=== PATIENT | male | born 1940 ===

== ENCOUNTER 2019-05-23 23:45 | Inpatient (IN) | payer MEDICARE ==
[~2019-05-23] VITALS: Ht 167.6 cm; Wt 69.4 kg
[2019-05-24] MEDS ORDERED: CEPH-264 PO (01:42)
[2019-05-24] MEDS ORDERED: DOXE10CA PO (01:42)
[2019-05-24] MEDS ORDERED: DICY10CA3 PO (01:42)
[2019-05-24] MEDS ORDERED: FINA5TAB4 PO (01:42)
[2019-05-24] MEDS ORDERED: SERT100T PO (01:42)
[2019-05-24] MEDS ORDERED: METO-239 PO (01:42)
[2019-05-24] MEDS ORDERED: TAMS0.4C97 PO (01:42)
[2019-05-24] MEDS ORDERED: OMEP20CA16 PO (01:42)
[2019-05-24] MEDS ORDERED: CLON0.5T4 PO (01:42)
[2019-05-24] MEDS ORDERED: MAG HYDROX/AL HYDROX/SIMETH 30 ML ORAL.SUSP PO PRN (02:15)
[2019-05-24] MEDS ORDERED: METHYL SALICYLATE/MENTHOL TOPICAL OINTMENT 57GM TUBE. TP PRN (02:15)
[2019-05-24] MEDS ORDERED: MAGNESIUM HYDROXIDE 2,400 MG/30 ML ORAL.SUSP. PO PRN (02:15)
[2019-05-24] MEDS ORDERED: DOXEPIN HCL 10 MG CAPSULE PO PRN (03:15)
[2019-05-24] MEDS: CEPHALEXIN 250 MG CAPSULE PO SCH ×2 (05:39→14:00)
--- NOTE | 2019-05-24 06:06 | EKG ---
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
[2019-05-24 06:45] VITALS: BP 154/81
[2019-05-24 07:06] LABS: BASO # 0.1 x10^3/uL (0.0-0.2); BASO % 1 % (0-3); EOS # 0.2 x10^3/uL (0.0-0.7); EOS % 4 % (0-3); HEMATOCRIT 44.1 % (39.0-53.0); HEMOGLOBIN 14.4 g/dL (13.0-17.5); LYMPH # 1.1 x10^3/uL (1.0-4.8); LYMPH % 18 % (24-48); MEAN CORPUSCULAR HEMOGLOBIN 27 pg (25-35); MEAN CORPUSCULAR HGB CONC 33 g/dL (31-37); MEAN CORPUSCULAR VOLUME 83 fL (79-100); MONO # 0.5 x10^3/uL (0.0-1.1); MONO % 8 % (0-9); NEUT # 4.5 x10^3uL (1.8-7.7); NEUT % 70 % (31-73); PLATELET COUNT 273 x10^3/uL (140-400); RED CELL DISTRIBUTION WIDTH 16.3 % (11.5-14.5); WHITE BLOOD COUNT 6.3 x10^3/uL (4.0-11.0)
[2019-05-24 07:14] LABS: ALBUMIN 3.8 g/dL (3.4-5.0); ALBUMIN/GLOBULIN RATIO 0.9 (1.0-1.7); CALCIUM 9.3 mg/dL (8.5-10.1); CREATININE 1.4 mg/dL (0.7-1.3); GFR 48.8; POTASSIUM 3.9 mmol/L (3.5-5.1); TOTAL BILIRUBIN 0.7 mg/dL (0.2-1.0); TOTAL PROTEIN 8.2 g/dL (6.4-8.2)
[2019-05-24] MEDS ORDERED: NON FORMULARY ITEM (Omeprazole 20 MG) PO SCH (07:30)
[2019-05-24] MEDS: DICYCLOMINE HCL 10 MG CAPSULE PO SCH ×5 (07:30→21:00)
[2019-05-24] MEDS: PANTOPRAZOLE 40 MG TABLET. PO SCH (07:58)
[2019-05-24] MEDS: TAMSULOSIN 0.4 MG CAP.ER.24H. PO SCH (07:59)
[2019-05-24] MEDS: METOPROLOL SUCC 24HR ER 25 MG TAB.ER.24H. PO SCH (07:59)
[2019-05-24] MEDS: SERTRALINE 100 MG TABLET. PO SCH (07:59)
[2019-05-24 16:07] LABS: THYROXINE 7.9 ug/dL (4.5-12.0)
[2019-05-24 16:18] VITALS: BP 153/64
[2019-05-24] MEDS: FINASTERIDE 5 MG TABLET PO SCH (21:00)
--- NOTE | 2019-05-24 21:06 | PDOC ---
Exam Note: Apolinar Note: Please also refer to the separate dictated note~for this date of service dictated separately. Discussed the patient with Nursing staff reviewed the chart.~Reviewed interim history and current functioning. Reviewed vital signs,~Labs/ Radiology~and current medications noted below. Continue current treatment with the changes noted in the dictated addendum note Assessment: Vital Signs/I&O: Vital Signs Date Time Temp Pulse Resp B/P (MAP) Pulse Ox O2 Delivery O2 Flow Rate FiO2 05/24/19 16:18 98.5 98 20 153/64 (93) 97 05/24/19 06:45 Room Air Labs: Laboratory Tests Test 05/24/19 06:38 White Blood Count 6.3 x10^3/uL (4.0-11.0) Red Blood Count 5.30 x10^6/uL (4.30-5.70) Hemoglobin 14.4 g/dL (13.0-17.5) Hematocrit 44.1 % (39.0-53.0) Mean Corpuscular Volume 83 fL (79-100) Mean Corpuscular Hemoglobin 27 pg (25-35) Mean Corpuscular Hemoglobin Concent 33 g/dL (31-37) Red Cell Distribution Width 16.3 % (11.5-14.5) H Platelet Count 273 x10^3/uL (140-400) Neutrophils (%) (Auto) 70 % (31-73) Lymphocytes (%) (Auto) 18 % (24-48) L Monocytes (%) (Auto) 8 % (0-9) Eosinophils (%) (Auto) 4 % (0-3) H Basophils (%) (Auto) 1 % (0-3) Neutrophils # (Auto) 4.5 x10^3uL (1.8-7.7) Lymphocytes # (Auto) 1.1 x10^3/uL (1.0-4.8) Monocytes # (Auto) 0.5 x10^3/uL (0.0-1.1) Eosinophils # (Auto) 0.2 x10^3/uL (0.0-0.7) Basophils # (Auto) 0.1 x10^3/uL (0.0-0.2) Sodium Level 141 mmol/L (136-145) Potassium Level 3.9 mmol/L (3.5-5.1) Chloride Level 101 mmol/L (98-107) Carbon Dioxide Level 24 mmol/L (21-32) Anion Gap 16 (6-14) H Blood Urea Nitrogen 16 mg/dL (8-26) Creatinine 1.4 mg/dL (0.7-1.3) H Estimated GFR (Cockcroft-Gault) 48.8 BUN/Creatinine Ratio 11 (6-20) Glucose Level 116 mg/dL (70-99) H Calcium Level 9.3 mg/dL (8.5-10.1) Magnesium Level 2.2 mg/dL (1.8-2.4) Total Bilirubin 0.7 mg/dL (0.2-1.0) Aspartate Amino Transferase (AST) 17 U/L (15-37) Alanine Aminotransferase (ALT) 13 U/L (16-63) L Alkaline Phosphatase 91 U/L (46-116) Total Protein 8.2 g/dL (6.4-8.2) Albumin 3.8 g/dL (3.4-5.0) Albumin/Globulin Ratio 0.9 (1.0-1.7) L Thyroxine (T4) 7.9 ug/dL (4.5-12.0) Total Triiodothyronine (TT3) 79 ng/dL (71-180) Current Medications: Meds: Current Medications Medications (Trade) Dose Ordered Sig/Mikel Route PRN Reason Start Time Stop Time Status Last Admin Dose Admin Dicyclomine HCl (Bentyl) 10 mg QIDACHS PO 05/24/19 07:30 05/24/19 11:30 Metoprolol Succinate (Toprol Xl) 25 mg DAILY PO 05/24/19 09:00 05/24/19 07:59 Sertraline HCl (Zoloft) 200 mg DAILY PO 05/24/19 09:00 05/24/19 07:59 Tamsulosin HCl (Flomax) 0.4 mg DAILY PO 05/24/19 09:00 05/24/19 07:59 Cephalexin HCl (Keflex) 500 mg Q8HRS PO 05/24/19 06:00 05/24/19 17:49 DC 05/24/19 05:39 Pantoprazole Sodium (Protonix) 40 mg DAILYAC PO 05/24/19 07:30 05/24/19 07:58 I have reviewed the current psychotropics carefully including drug interactions. Risk benefit ratio favors no change other than as noted in my dictated progress note. Diagnosis: Problems: (1) Anxiety disorder (2) Major depressive disorder, recurrent episode (3) Major neurocognitive disorder, due to vascular disease, with behavioral disturbance, mild (4) Mild cognitive disorder (5) Impulse control disorder OTIS SHEPHERD MD May 24, 2019 21:06
[2019-05-24] MEDS: clonazePAM 1 MG TABLET PO SCH (21:11)
[2019-05-24] MEDS: risperiDONE ORAL 1 MG/ML 30ml BOTTLE. SL SCH (21:13)
[2019-05-24 21:58] LABS: THYROID STIM HORMONE (TSH) 2.144 uIU/mL (0.358-3.740)
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
[2019-05-25 00:06] LABS: HEMOGLOBIN A1C 5.4 % (4.8-5.6)
[2019-05-25 06:25] VITALS: BP 150/74
[2019-05-25] MEDS: TAMSULOSIN 0.4 MG CAP.ER.24H. PO SCH (10:28)
[2019-05-25] MEDS: SERTRALINE 100 MG TABLET. PO SCH (10:29)
[2019-05-25] MEDS: DICYCLOMINE HCL 10 MG CAPSULE PO SCH ×4 (10:29→20:38)
[2019-05-25] MEDS: METOPROLOL SUCC 24HR ER 25 MG TAB.ER.24H. PO SCH (10:29)
[2019-05-25] MEDS: PANTOPRAZOLE 40 MG TABLET. PO SCH (10:29)
[2019-05-25] MEDS: cefTRIAXone IM 1 GM VIAL IM SCH (10:30)
[2019-05-25 16:02] VITALS: BP 120/82
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
[2019-05-25] MEDS: FINASTERIDE 5 MG TABLET PO SCH (20:38)
[2019-05-25] MEDS: clonazePAM 1 MG TABLET PO SCH (20:38)
[2019-05-25] MEDS: risperiDONE ORAL 1 MG/ML 30ml BOTTLE. SL SCH (20:40)
--- NOTE | 2019-05-25 21:05 | PDOC ---
Exam Note: Apolinar Note: Please also refer to the separate dictated note~for this date of service dictated separately.~Patient seen individually. Discussed the patient with Nursing staff reviewed the chart.~Reviewed interim history and current functioning. Reviewed vital signs,~Labs/ Radiology~and current medications noted below. Continue current treatment with the changes noted in the dictated addendum note Assessment: Vital Signs/I&O: Vital Signs Date Time Temp Pulse Resp B/P (MAP) Pulse Ox O2 Delivery O2 Flow Rate FiO2 05/25/19 16:02 97.4 76 20 120/82 (95) 96 05/24/19 06:45 Room Air I & O 05/24/19 05/24/19 05/25/19 15:00 23:00 07:00 Intake Total 960 ml 360 ml Balance 960 ml 360 ml Current Medications: Meds: Current Medications Medications (Trade) Dose Ordered Sig/Mikel Route PRN Reason Start Time Stop Time Status Last Admin Dose Admin Ceftriaxone Sodium (Rocephin Im) 1 gm DAILY IM 05/25/19 09:00 05/31/19 11:00 05/25/19 10:30 I have reviewed the current psychotropics carefully including drug interactions. Risk benefit ratio favors no change other than as noted in my dictated progress note. Diagnosis: Problems: (1) Dementia, vascular, with delusions (2) Dementia, vascular, with depression (3) Anxiety disorder (4) Major depressive disorder, recurrent episode (5) Major neurocognitive disorder, due to vascular disease, with behavioral disturbance, mild (6) Mild cognitive disorder (7) Impulse control disorder OTIS SHEPHERD MD May 25, 2019 21:05
[2019-05-26 05:44] VITALS: BP 119/82
[2019-05-26] MEDS: METOPROLOL SUCC 24HR ER 25 MG TAB.ER.24H. PO SCH (08:46)
[2019-05-26] MEDS: DICYCLOMINE HCL 10 MG CAPSULE PO SCH ×4 (08:46→20:08)
[2019-05-26] MEDS: SERTRALINE 100 MG TABLET. PO SCH (08:47)
[2019-05-26] MEDS: PANTOPRAZOLE 40 MG TABLET. PO SCH (08:47)
[2019-05-26] MEDS: TAMSULOSIN 0.4 MG CAP.ER.24H. PO SCH (08:47)
[2019-05-26] MEDS: cefTRIAXone IM 1 GM VIAL IM SCH (10:48)
[2019-05-26 16:03] VITALS: BP 121/88
[2019-05-26] MEDS: ACETAMINOPHEN 325 MG TABLET PO PRN (17:54)
[2019-05-26] MEDS: clonazePAM 1 MG TABLET PO SCH (20:08)
[2019-05-26] MEDS: FINASTERIDE 5 MG TABLET PO SCH (20:08)
[2019-05-26] MEDS: risperiDONE ORAL 1 MG/ML 30ml BOTTLE. SL SCH (20:13)
--- NOTE | 2019-05-26 22:36 | PDOC ---
Exam Note: Apolinar Note: Please also refer to the separate dictated note~for this date of service dictated separately.~Patient seen individually. Discussed the patient with Nursing staff reviewed the chart.~Reviewed interim history and current functioning. Reviewed vital signs,~Labs/ Radiology~and current medications noted below. Continue current treatment with the changes noted in the dictated addendum note Assessment: Vital Signs/I&O: Vital Signs Date Time Temp Pulse Resp B/P (MAP) Pulse Ox O2 Delivery O2 Flow Rate FiO2 05/26/19 16:03 98.7 140 18 121/88 (99) 96 05/24/19 06:45 Room Air I & O 05/25/19 05/25/19 05/26/19 15:00 23:00 07:00 Intake Total 0 ml 240 ml Balance 0 ml 240 ml Current Medications: I have reviewed the current psychotropics carefully including drug interactions. Risk benefit ratio favors no change other than as noted in my dictated progress note. Diagnosis: Problems: (1) Dementia, vascular, with depression (2) Dementia, vascular, with delusions (3) Anxiety disorder (4) Major depressive disorder, recurrent episode (5) Major neurocognitive disorder, due to vascular disease, with behavioral disturbance, mild (6) Mild cognitive disorder (7) Impulse control disorder OTIS SHEPHERD MD May 26, 2019 22:36
[2019-05-27 05:55] VITALS: BP 119/74
[2019-05-27] MEDS: PANTOPRAZOLE 40 MG TABLET. PO SCH (07:30)
[2019-05-27] MEDS: DICYCLOMINE HCL 10 MG CAPSULE PO SCH ×4 (08:20→20:50)
[2019-05-27] MEDS: METOPROLOL SUCC 24HR ER 25 MG TAB.ER.24H. PO SCH (09:00)
[2019-05-27] MEDS: TAMSULOSIN 0.4 MG CAP.ER.24H. PO SCH (09:00)
[2019-05-27] MEDS: SERTRALINE 100 MG TABLET. PO SCH (09:00)
[2019-05-27] MEDS: cefTRIAXone IM 1 GM VIAL IM SCH (11:41)
[2019-05-27 16:15] VITALS: BP 145/83
[2019-05-27] MEDS: FINASTERIDE 5 MG TABLET PO SCH (20:50)
[2019-05-27] MEDS: risperiDONE ORAL 1 MG/ML 30ml BOTTLE. SL SCH (20:50)
[2019-05-27] MEDS: clonazePAM 2 MG TABLET PO SCH (20:50)
--- NOTE | 2019-05-27 20:53 | PDOC ---
Exam Note: Apolinar Note: Please also refer to the separate dictated note~for this date of service dictated separately.~Patient seen individually. Discussed the patient with Nursing staff reviewed the chart.~Reviewed interim history and current functioning. Reviewed vital signs,~Labs/ Radiology~and current medications noted below. Continue current treatment with the changes noted in the dictated addendum note Assessment: Vital Signs/I&O: Vital Signs Date Time Temp Pulse Resp B/P (MAP) Pulse Ox O2 Delivery O2 Flow Rate FiO2 05/27/19 16:15 97.0 112 20 145/83 (103) 97 05/24/19 06:45 Room Air I & O 05/26/19 05/26/19 05/27/19 15:00 23:00 07:00 Intake Total 1 ml 360 ml Balance 1 ml 360 ml Current Medications: Meds: Current Medications Medications (Trade) Dose Ordered Sig/Mikel Route PRN Reason Start Time Stop Time Status Last Admin Dose Admin Clonazepam (KlonoPIN) 2 mg HS PO 05/27/19 21:00 05/29/19 23:50 05/27/19 20:50 I have reviewed the current psychotropics carefully including drug interactions. Risk benefit ratio favors no change other than as noted in my dictated progress note. Diagnosis: Problems: (1) Dementia, vascular, with depression (2) Dementia, vascular, with delusions (3) Anxiety disorder (4) Major depressive disorder, recurrent episode (5) Major neurocognitive disorder, due to vascular disease, with behavioral disturbance, mild (6) Mild cognitive disorder (7) Impulse control disorder OTIS SHEPHERD MD May 27, 2019 20:53
--- NOTE | 2019-05-28 00:21 | PN ---
DATE: 05/25/2019 PSYCHIATRIC PROGRESS NOTE This late entry of 05/25 covers elements not covered in my initial note. SUBJECTIVE: I met with the patient in the evening. Per JACK Peters, the patient slept 6-1/4 hours the previous night. He has been somewhat drowsy and disorganized, compliant with medications. He took his meds other than IM Rocephin for his UTI. He has been somewhat sedated. Klonopin is being tapered; he was on 3 mg at bedtime and we will reduce by 0.5 mg every 3 days until he is down to 1 mg at bedtime. REVIEW OF SYSTEMS: No CV, , pulmonary, eye, ENT system symptoms on review. CT head is negative. MENTAL STATUS EXAM: Oriented to himself and situation. Speech; moderate latency, often response is monosyllabic. Abstraction fair, computation impaired, language function intact, attention span short, mood and affect somewhat withdrawn. LABORATORY DATA: Reviewed. IMPRESSION: Major neurocognitive disorder, probably early Alzheimer, vascular with delusion, depression; anxiety disorder, unspecified; psychotic disorder, unspecified. PLAN: Taper the Klonopin. Rest unchanged for now. We will reassess post baseline assessment. OTIS SHEPHERD MD DR: DEMETRIO/pramod JOB#: [id number] / [id number]
[2019-05-28 06:09] VITALS: BP 126/79
[2019-05-28 08:09] VITALS: BP 125/83
[2019-05-28] MEDS: PANTOPRAZOLE 40 MG TABLET. PO SCH (08:10)
[2019-05-28] MEDS: TAMSULOSIN 0.4 MG CAP.ER.24H. PO SCH (08:11)
[2019-05-28] MEDS: cefTRIAXone IM 1 GM VIAL IM SCH (08:11)
[2019-05-28] MEDS: DICYCLOMINE HCL 10 MG CAPSULE PO SCH ×4 (08:11→20:12)
[2019-05-28] MEDS: SERTRALINE 100 MG TABLET. PO SCH (08:11)
[2019-05-28] MEDS: METOPROLOL SUCC 24HR ER 25 MG TAB.ER.24H. PO SCH (08:11)
[2019-05-28] MEDS: ACETAMINOPHEN 325 MG TABLET PO PRN (08:15)
[2019-05-28 15:18] VITALS: BP 118/83
[2019-05-28] MEDS: FINASTERIDE 5 MG TABLET PO SCH (20:13)
[2019-05-28] MEDS: clonazePAM 2 MG TABLET PO SCH (20:13)
[2019-05-28] MEDS: risperiDONE ORAL 1 MG/ML 30ml BOTTLE. SL SCH (20:14)
--- NOTE | 2019-05-28 21:38 | PDOC ---
Exam Note: Apolinar Note: Please also refer to the separate dictated note~for this date of service dictated separately.~Patient seen individually. Discussed the patient with Nursing staff reviewed the chart.~Reviewed interim history and current functioning. Reviewed vital signs,~Labs/ Radiology~and current medications noted below. Continue current treatment with the changes noted in the dictated addendum note Assessment: Vital Signs/I&O: Vital Signs Date Time Temp Pulse Resp B/P (MAP) Pulse Ox O2 Delivery O2 Flow Rate FiO2 05/28/19 15:18 98.5 73 18 118/83 (95) 95 05/24/19 06:45 Room Air I & O 05/27/19 05/27/19 05/28/19 15:00 23:00 07:00 Intake Total 0 ml 0 ml Balance 0 ml 0 ml Current Medications: I have reviewed the current psychotropics carefully including drug interactions. Risk benefit ratio favors no change other than as noted in my dictated progress note. Diagnosis: Problems: (1) Dementia, vascular, with depression (2) Dementia, vascular, with delusions (3) Anxiety disorder (4) Major depressive disorder, recurrent episode (5) Major neurocognitive disorder, due to vascular disease, with behavioral disturbance, mild (6) Mild cognitive disorder (7) Impulse control disorder OTIS SHEPHERD MD May 28, 2019 21:38
--- NOTE | 2019-05-29 01:43 | PN ---
DATE: 05/26/2019 PSYCHIATRIC PROGRESS NOTE This late entry of 05/26 covers elements not covered in my initial note. SUBJECTIVE: I met with the patient on the evening of 05/26. The patient slept 7-1/2 hours the previous night. He refused his medications, somewhat obsessive, just wanting to drink spring water. Complains of vague GI symptoms, was having vomiting of bile around 10:00 a.m. per JACK Ellis. REVIEW OF SYSTEMS: Positive for the GI symptoms. No CV, , pulmonary, eye system symptoms on review. He remains somewhat delusional, obsessive, anxious. MENTAL STATUS EXAMINATION: Oriented to himself and situation. Speech has some latency, coherent, often response is monosyllabic. Abstraction fair, computation impaired, language function intact. Mood and affect withdrawn. LABORATORY DATA: Reviewed. IMPRESSION: Major depressive disorder, recurrent; anxiety disorder, unspecified; major neurocognitive disorder, multifactorial with depression, delusion. Rest unchanged. PLAN: Klonopin is being tapered. Continue Zoloft and Risperdal was added 0.5 mg at bedtime; Zoloft is at 200 mg a day. Adjust further as clinically indicated. MAN Selma SHEPHERD MD DR: DEMETRIO/pramod JOB#: [id number] / [id number]
--- NOTE | 2019-05-29 01:43 | PN ---
DATE: 05/27/2019 PSYCHIATRIC PROGRESS NOTE This late entry 05/27/2019 covers elements not covered in my initial note. SUBJECTIVE: I met with the patient evening of 05/27/2019. The patient slept 6-1/2 hours previous night per nursing report. Refused his morning medications, wanted organic grape juice before he would eat anything. Staff member did go to [facility] to get this for him, but after that even he refused his meals. He was having some intermittent urinary retention and nursing staff are not sure if this is in fact a problem. He did get a straight catheterization 750 mL out. REVIEW OF SYSTEMS: Other than above, no CV, , pulmonary, ENT system symptoms on review. MENTAL STATUS EXAM: Oriented to himself and situation. Speech has some latency. Abstraction fair, computation impaired, language function intact, attention span short. Mood and affect withdrawn. LABORATORY DATA: Reviewed. IMPRESSION: Major depressive disorder with psychotic features; anxiety disorder, unspecified; major neurocognitive disorder, early Alzheimer, vascular with delusion, depression. Rest unchanged. PLAN: Reduce Zoloft to 150 mg a day since this could be worsening his irritability. Continue to taper the Klonopin. Rest unchanged for now. Risperdal 0.5 mg at bedtime. MAN Selma SHEPHERD MD DR: DEMETRIO/pramod JOB#: [id number] / [id number]
[2019-05-29 05:39] VITALS: BP 145/77
[2019-05-29 07:08] LABS: BASO # 0.1 x10^3/uL (0.0-0.2); BASO % 1 % (0-3); EOS # 0.3 x10^3/uL (0.0-0.7); EOS % 6 % (0-3); HEMOGLOBIN 12.9 g/dL (13.0-17.5); LYMPH # 0.7 x10^3/uL (1.0-4.8); LYMPH % 13 % (24-48); MEAN CORPUSCULAR HEMOGLOBIN 27 pg (25-35); MEAN CORPUSCULAR HGB CONC 32 g/dL (31-37); MEAN CORPUSCULAR VOLUME 84 fL (79-100); MONO # 0.5 x10^3/uL (0.0-1.1); MONO % 9 % (0-9); NEUT # 3.9 x10^3uL (1.8-7.7); NEUT % 71 % (31-73); PLATELET COUNT 216 x10^3/uL (140-400); RED BLOOD COUNT 4.76 x10^6/uL (4.30-5.70); RED CELL DISTRIBUTION WIDTH 16.2 % (11.5-14.5); WHITE BLOOD COUNT 5.4 x10^3/uL (4.0-11.0)
[2019-05-29 07:20] LABS: ALBUMIN 3.5 g/dL (3.4-5.0); ALBUMIN/GLOBULIN RATIO 0.9 (1.0-1.7); CALCIUM 9.2 mg/dL (8.5-10.1); CREATININE 1.3 mg/dL (0.7-1.3); GFR 53.1; POTASSIUM 3.7 mmol/L (3.5-5.1); TOTAL BILIRUBIN 0.3 mg/dL (0.2-1.0); TOTAL PROTEIN 7.4 g/dL (6.4-8.2)
[2019-05-29] MEDS: PANTOPRAZOLE 40 MG TABLET. PO SCH (08:25)
[2019-05-29] MEDS: DICYCLOMINE HCL 10 MG CAPSULE PO SCH ×4 (08:25→20:08)
[2019-05-29] MEDS: SERTRALINE 100 MG TABLET. PO SCH (08:25)
[2019-05-29] MEDS: TAMSULOSIN 0.4 MG CAP.ER.24H. PO SCH (08:25)
[2019-05-29] MEDS: METOPROLOL SUCC 24HR ER 25 MG TAB.ER.24H. PO SCH (08:25)
[2019-05-29] MEDS: cefTRIAXone IM 1 GM VIAL IM SCH (08:26)
[2019-05-29] MEDS: ACETAMINOPHEN 325 MG TABLET PO PRN (14:29)
[2019-05-29 15:58] VITALS: BP 126/84
[2019-05-29] MEDS: clonazePAM 2 MG TABLET PO SCH (20:08)
[2019-05-29] MEDS: risperiDONE ORAL 1 MG/ML 30ml BOTTLE. SL SCH (20:08)
[2019-05-29] MEDS: FINASTERIDE 5 MG TABLET PO SCH (20:08)
--- NOTE | 2019-05-29 21:54 | PDOC ---
Exam Note: Apolinar Note: Please also refer to the separate dictated note~for this date of service dictated separately.~Patient seen individually. Discussed the patient with Nursing staff reviewed the chart.~Reviewed interim history and current functioning. Reviewed vital signs,~Labs/ Radiology~and current medications noted below. Continue current treatment with the changes noted in the dictated addendum note Assessment: Vital Signs/I&O: Vital Signs Date Time Temp Pulse Resp B/P (MAP) Pulse Ox O2 Delivery O2 Flow Rate FiO2 05/29/19 15:58 98.1 92 16 126/84 (98) 99 05/24/19 06:45 Room Air I & O 05/28/19 05/28/19 05/29/19 15:00 23:00 07:00 Intake Total 480 ml 240 ml Balance 480 ml 240 ml Labs: Laboratory Tests Test 05/29/19 06:44 White Blood Count 5.4 x10^3/uL (4.0-11.0) Red Blood Count 4.76 x10^6/uL (4.30-5.70) Hemoglobin 12.9 g/dL (13.0-17.5) L Hematocrit 40.0 % (39.0-53.0) Mean Corpuscular Volume 84 fL (79-100) Mean Corpuscular Hemoglobin 27 pg (25-35) Mean Corpuscular Hemoglobin Concent 32 g/dL (31-37) Red Cell Distribution Width 16.2 % (11.5-14.5) H Platelet Count 216 x10^3/uL (140-400) Neutrophils (%) (Auto) 71 % (31-73) Lymphocytes (%) (Auto) 13 % (24-48) L Monocytes (%) (Auto) 9 % (0-9) Eosinophils (%) (Auto) 6 % (0-3) H Basophils (%) (Auto) 1 % (0-3) Neutrophils # (Auto) 3.9 x10^3uL (1.8-7.7) Lymphocytes # (Auto) 0.7 x10^3/uL (1.0-4.8) L Monocytes # (Auto) 0.5 x10^3/uL (0.0-1.1) Eosinophils # (Auto) 0.3 x10^3/uL (0.0-0.7) Basophils # (Auto) 0.1 x10^3/uL (0.0-0.2) Sodium Level 142 mmol/L (136-145) Potassium Level 3.7 mmol/L (3.5-5.1) Chloride Level 103 mmol/L (98-107) Carbon Dioxide Level 26 mmol/L (21-32) Anion Gap 13 (6-14) Blood Urea Nitrogen 32 mg/dL (8-26) H Creatinine 1.3 mg/dL (0.7-1.3) Estimated GFR (Cockcroft-Gault) 53.1 BUN/Creatinine Ratio 25 (6-20) H Glucose Level 108 mg/dL (70-99) H Calcium Level 9.2 mg/dL (8.5-10.1) Total Bilirubin 0.3 mg/dL (0.2-1.0) Aspartate Amino Transferase (AST) 22 U/L (15-37) Alanine Aminotransferase (ALT) 22 U/L (16-63) Alkaline Phosphatase 97 U/L (46-116) Total Protein 7.4 g/dL (6.4-8.2) Albumin 3.5 g/dL (3.4-5.0) Albumin/Globulin Ratio 0.9 (1.0-1.7) L Current Medications: I have reviewed the current psychotropics carefully including drug interactions. Risk benefit ratio favors no change other than as noted in my dictated progress note. Diagnosis: Problems: (1) Dementia, vascular, with depression (2) Dementia, vascular, with delusions (3) Anxiety disorder (4) Major depressive disorder, recurrent episode (5) Major neurocognitive disorder, due to vascular disease, with behavioral disturbance, mild (6) Mild cognitive disorder (7) Impulse control disorder OTIS SHEPHERD MD May 29, 2019 21:54
--- NOTE | 2019-05-29 23:45 | PN ---
DATE: 05/28/2019 PSYCHIATRIC PROGRESS NOTE. This late entry of 05/28/2019 covers the elements not covered in my initial note. SUBJECTIVE: I met with the patient in the evening of 05/28/2019. Per JACK Wylie, the patient slept 7-1/4 hours previous night. He has been compliant with his medications. He does have short-term memory deficits, somewhat anxious at times, but minimizes this. He is tolerating the taper of Klonopin. REVIEW OF SYSTEMS: Ambulation impaired, with walker with standby assist. No CV, , pulmonary, eye system symptoms on review. MENTAL STATUS EXAM: Oriented to himself and situation. Speech has some latency, often responses monosyllabic, coherent. Abstraction fair, computation impaired, language function intact, attention span short. Mood and affect somewhat dysphoric, withdrawn. LABORATORY DATA: Reviewed. IMPRESSION: Major depressive disorder; psychotic disorder, unspecified; impulse control disorder. Rest unchanged. PLAN: Continue current psychotropics. Zoloft was reduced to 150 mg a day since it was felt it could be worsening his irritability. Klonopin is being tapered, Risperdal 0.5 mg at bedtime. Adjust further as clinically indicated. OTIS SHEPHERD MD DR: DEMETRIO/pramod JOB#: [id number] / [id number]
[2019-05-30 06:30] VITALS: BP 135/90
[2019-05-30] MEDS: DICYCLOMINE HCL 10 MG CAPSULE PO SCH ×4 (08:52→19:43)
[2019-05-30] MEDS: TAMSULOSIN 0.4 MG CAP.ER.24H. PO SCH (08:52)
[2019-05-30] MEDS: METOPROLOL SUCC 24HR ER 25 MG TAB.ER.24H. PO SCH (08:53)
[2019-05-30] MEDS: PANTOPRAZOLE 40 MG TABLET. PO SCH (08:53)
[2019-05-30] MEDS: SERTRALINE 100 MG TABLET. PO SCH (08:53)
[2019-05-30] MEDS: ACETAMINOPHEN 325 MG TABLET PO PRN (09:01)
[2019-05-30] MEDS: cefTRIAXone IM 1 GM VIAL IM SCH (10:31)
[2019-05-30 15:38] VITALS: BP 125/86
[2019-05-30] MEDS: risperiDONE ORAL 1 MG/ML 30ml BOTTLE. SL SCH (19:43)
[2019-05-30] MEDS: FINASTERIDE 5 MG TABLET PO SCH (19:43)
[2019-05-30] MEDS: clonazePAM 1 MG TABLET PO SCH (19:43)
[2019-05-30] MEDS: HYDROcodone/APAP 5/325MG 1 TAB TABLET PO SCH (19:46)
--- NOTE | 2019-05-30 21:56 | PDOC ---
Exam Note: Apolinar Note: Please also refer to the separate dictated note~for this date of service dictated separately.~Patient seen individually. Discussed the patient with Nursing staff reviewed the chart.~Reviewed interim history and current functioning. Reviewed vital signs,~Labs/ Radiology~and current medications noted below. Continue current treatment with the changes noted in the dictated addendum note Assessment: Vital Signs/I&O: Vital Signs Date Time Temp Pulse Resp B/P (MAP) Pulse Ox O2 Delivery O2 Flow Rate FiO2 05/30/19 20:48 100 Room Air 05/30/19 15:38 98.7 102 18 125/86 (99) I & O 05/29/19 05/29/19 05/30/19 15:00 23:00 07:00 Intake Total 120 ml 240 ml Balance 120 ml 240 ml Current Medications: Meds: Current Medications Medications (Trade) Dose Ordered Sig/Mikel Route PRN Reason Start Time Stop Time Status Last Admin Dose Admin Clonazepam (KlonoPIN) 1.5 mg HS PO 05/30/19 21:00 06/01/19 23:50 05/30/19 19:43 Acetaminophen/ Hydrocodone Bitart (Lortab 5/325) 1 tab TID PO 05/30/19 21:00 05/30/19 19:46 I have reviewed the current psychotropics carefully including drug interactions. Risk benefit ratio favors no change other than as noted in my dictated progress note. Diagnosis: Problems: (1) Dementia, vascular, with depression (2) Dementia, vascular, with delusions (3) Anxiety disorder (4) Major depressive disorder, recurrent episode (5) Major neurocognitive disorder, due to vascular disease, with behavioral disturbance, mild (6) Mild cognitive disorder (7) Impulse control disorder OTIS SHEPHERD MD May 30, 2019 21:56
--- NOTE | 2019-05-31 04:40 | PN ---
DATE: 05/29/2019 PSYCHIATRIC PROGRESS NOTE This late entry 05/29/2019 covers elements not covered in my initial note. SUBJECTIVE: I met with the patient evening of 05/29/2019. Per JACK Elliott, the patient slept 8 hours previous night. He has been doing better, still remains on Rocephin for his UTI. He gets fixated on only drinking spring water, often refuses food, but despite this, is less delusional. REVIEW OF SYSTEMS: Ambulation impaired, in wheelchair. No CV, , pulmonary, eye system symptoms on review. MENTAL STATUS EXAM: Oriented to himself and situation. Speech moderate latency, often responses monosyllabic. Abstraction fair, computation impaired, language function intact, attention span short. Mood and affect still somewhat paranoid, depressed, but less so than before. No active suicidal ideation. LABORATORY DATA: Reviewed. IMPRESSION: Major depressive disorder with psychotic features; impulse control disorder; mild cognitive impairment. Rest unchanged including urinary tract infection. PLAN: Continue psychotropics from initial note, Klonopin is being tapered. Remains on Risperdal and Zoloft is 150 mg a day. MAN Selma SHEPHERD MD DR: DEMETRIO/pramod JOB#: [id number] / [id number]
[2019-05-31] MEDS: HYDROcodone/APAP 5/325MG 1 TAB TABLET PO SCH ×3 (05:42→19:47)
[2019-05-31 05:54] VITALS: BP 118/76
[2019-05-31] MEDS: DICYCLOMINE HCL 10 MG CAPSULE PO SCH ×4 (07:51→19:47)
[2019-05-31] MEDS: TAMSULOSIN 0.4 MG CAP.ER.24H. PO SCH (07:51)
[2019-05-31] MEDS: PANTOPRAZOLE 40 MG TABLET. PO SCH (07:51)
[2019-05-31] MEDS: METOPROLOL SUCC 24HR ER 25 MG TAB.ER.24H. PO SCH (07:52)
[2019-05-31] MEDS: SERTRALINE 50 MG TABLET. PO SCH (07:54)
[2019-05-31] MEDS: cefTRIAXone IM 1 GM VIAL IM SCH (10:41)
[2019-05-31] MEDS: ACETAMINOPHEN 325 MG TABLET PO PRN (10:45)
[2019-05-31 15:54] VITALS: BP 114/67
[2019-05-31] MEDS: clonazePAM 1 MG TABLET PO SCH (19:47)
[2019-05-31] MEDS: FINASTERIDE 5 MG TABLET PO SCH (19:47)
[2019-05-31] MEDS: risperiDONE ORAL 1 MG/ML 30ml BOTTLE. SL SCH (19:49)
--- NOTE | 2019-05-31 21:27 | PDOC ---
Exam Note: Apolinar Note: Please also refer to the separate dictated note~for this date of service dictated separately.~Patient seen individually. Discussed the patient with Nursing staff reviewed the chart.~Reviewed interim history and current functioning. Reviewed vital signs,~Labs/ Radiology~and current medications noted below. Continue current treatment with the changes noted in the dictated addendum note Assessment: Vital Signs/I&O: Vital Signs Date Time Temp Pulse Resp B/P (MAP) Pulse Ox O2 Delivery O2 Flow Rate FiO2 05/31/19 20:49 18 98 Room Air 05/31/19 15:54 97.4 90 114/67 (83) I & O 05/30/19 05/30/19 05/31/19 15:00 23:00 07:00 Intake Total 840 ml 320 ml Balance 840 ml 320 ml Current Medications: Meds: Current Medications Medications (Trade) Dose Ordered Sig/Mikel Route PRN Reason Start Time Stop Time Status Last Admin Dose Admin Sertraline HCl (Zoloft) 150 mg DAILY PO 05/31/19 09:00 05/31/19 07:54 I have reviewed the current psychotropics carefully including drug interactions. Risk benefit ratio favors no change other than as noted in my dictated progress note. Diagnosis: Problems: (1) Dementia, vascular, with depression (2) Dementia, vascular, with delusions (3) Anxiety disorder (4) Major depressive disorder, recurrent episode (5) Major neurocognitive disorder, due to vascular disease, with behavioral disturbance, mild (6) Mild cognitive disorder (7) Impulse control disorder OTIS SHEPHERD MD May 31, 2019 21:27
[2019-06-01] MEDS: HYDROcodone/APAP 5/325MG 1 TAB TABLET PO SCH ×3 (06:04→19:57)
[2019-06-01 06:27] VITALS: BP 102/67
[2019-06-01] MEDS: SERTRALINE 50 MG TABLET. PO SCH (07:50)
[2019-06-01] MEDS: PANTOPRAZOLE 40 MG TABLET. PO SCH (07:51)
[2019-06-01] MEDS: DICYCLOMINE HCL 10 MG CAPSULE PO SCH ×4 (07:51→19:58)
[2019-06-01] MEDS: METOPROLOL SUCC 24HR ER 25 MG TAB.ER.24H. PO SCH (07:51)
[2019-06-01] MEDS: TAMSULOSIN 0.4 MG CAP.ER.24H. PO SCH (07:51)
[2019-06-01] MEDS: ACETAMINOPHEN 325 MG TABLET PO PRN ×2 (07:51→13:55)
--- NOTE | 2019-06-01 14:09 | PN ---
DATE: 05/30/2019 PSYCHIATRIC PROGRESS NOTE This late entry 05/30/2019 covers elements not covered in my initial note. SUBJECTIVE: I met with the patient evening of 05/30/2019. Per JACK Peters, the patient slept 7-1/4 hours previous night. He has not been disruptive, but somewhat withdrawn, does come out to the day room, compliant with medications. He is quite obsessive, picky on the kind of water he drinks and food that he eats. REVIEW OF SYSTEMS: Ambulation impaired standby assist. No CV, , pulmonary, eye system symptoms on review. MENTAL STATUS EXAM: Oriented to himself and situation. Speech has some latency, coherent. Abstraction fair, computation impaired, language function intact, and attention span short. Short term memory is impaired. No active suicidal or homicidal ideation. He is somewhat ruminative. LABORATORY DATA: Reviewed. IMPRESSION: Major depressive disorder with psychotic features; mild cognitive impairment; psychotic disorder, unspecified; status post urinary tract infection. PLAN: Continue psychotropics from initial note. Klonopin is being tapered. Maintain Zoloft 150 mg a day, Risperdal 0.5 mg at bedtime. Consider psychological testing with Dr. Lubin as baseline. OTIS SHEPHERD MD DR: DEMETRIO/pramod JOB#: [id number] / [id number]
[2019-06-01 15:39] VITALS: BP 121/60
--- NOTE | 2019-06-01 16:41 | RAD ---
EXAM: RIGHT SHOULDER 3 VIEWS. HISTORY: Right shoulder pain and limited range of motion. COMPARISON: None. FINDINGS: No acute fractures are seen. There are changes of internal fixation of a chronic right proximal humeral fracture, partially visualized. Glenohumeral joint spaces and alignment are maintained. Acromioclavicular osteoarthritis is mild. Alignment is maintained. There are atherosclerotic calcifications of the aorta. IMPRESSION: 1. 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 Electronically signed by: Lamin Cisneros MD (06/01/2019 4:38 PM) [facility]
--- NOTE | 2019-06-01 19:21 | PN ---
DATE: 05/31/2019 PSYCHIATRIC PROGRESS NOTE This late entry of May 31 covers elements not covered in my initial note. SUBJECTIVE: I met with the patient evening of May 31 and staffed at a treatment team meeting with the entire team in the morning. Appetite 25%, slept 5-1/2 hours. He has been calm, cooperative with cares. Little more interactive at certain times, withdrawn at other times, attending social work msw groups. REVIEW OF SYSTEMS: Ambulation impaired and with walker and at times in wheelchair. No CV, , pulmonary, eye, ENT system symptoms on review. MENTAL STATUS EXAM: Oriented to himself and situation. Speech moderate latency, often responses monosyllabic. Abstraction fair. Computation impaired. Language function intact. Attention span short. Mood and affect withdrawn. LABORATORY DATA: Reviewed. IMPRESSION: Major depressive disorder with psychotic features, mild cognitive impairment; impulse control disorder, urinary tract infection. PLAN: Treat the UTI. Continue psychotropics from initial note. Klonopin is being tapered. Maintain Zoloft and Risperdal at current dosage, adjust further as clinically indicated. MAN Selma SHEPHERD MD DR: DEMETRIO/pramod JOB#: [id number] / [id number]
[2019-06-01] MEDS: risperiDONE ORAL 1 MG/ML 30ml BOTTLE. SL SCH (19:57)
[2019-06-01] MEDS: FINASTERIDE 5 MG TABLET PO SCH (19:58)
[2019-06-01] MEDS: clonazePAM 1 MG TABLET PO SCH (19:58)
--- NOTE | 2019-06-01 21:28 | PDOC ---
Exam Note: Apolinar Note: Please also refer to the separate dictated note~for this date of service dictated separately.~Patient seen individually. Discussed the patient with Nursing staff reviewed the chart.~Reviewed interim history and current functioning. Reviewed vital signs,~Labs/ Radiology~and current medications noted below. Continue current treatment with the changes noted in the dictated addendum note Assessment: Vital Signs/I&O: Vital Signs Date Time Temp Pulse Resp B/P (MAP) Pulse Ox O2 Delivery O2 Flow Rate FiO2 06/01/19 20:57 97 06/01/19 15:39 97.4 86 18 121/60 (80) 06/01/19 14:55 Room Air I & O 05/31/19 05/31/19 06/01/19 15:00 23:00 07:00 Intake Total 720 ml 240 ml 240 ml Balance 720 ml 240 ml 240 ml Current Medications: I have reviewed the current psychotropics carefully including drug interactions. Risk benefit ratio favors no change other than as noted in my dictated progress note. Diagnosis: Problems: (1) Dementia, vascular, with depression (2) Dementia, vascular, with delusions (3) Anxiety disorder (4) Major depressive disorder, recurrent episode (5) Major neurocognitive disorder, due to vascular disease, with behavioral disturbance, mild (6) Mild cognitive disorder (7) Impulse control disorder OTIS SHEPHERD MD Jun 01, 2019 21:28
[2019-06-02] MEDS: ACETAMINOPHEN 325 MG TABLET PO PRN ×2 (04:22→12:19)
[2019-06-02 05:20] VITALS: BP 131/69
[2019-06-02] MEDS: DICYCLOMINE HCL 10 MG CAPSULE PO SCH ×4 (07:50→20:24)
[2019-06-02] MEDS: PANTOPRAZOLE 40 MG TABLET. PO SCH (07:50)
[2019-06-02] MEDS: TAMSULOSIN 0.4 MG CAP.ER.24H. PO SCH (07:50)
[2019-06-02] MEDS: SERTRALINE 50 MG TABLET. PO SCH (07:50)
[2019-06-02] MEDS: METOPROLOL SUCC 24HR ER 25 MG TAB.ER.24H. PO SCH (07:50)
[2019-06-02] MEDS: HYDROcodone/APAP 5/325MG 1 TAB TABLET PO SCH ×3 (07:51→20:24)
[2019-06-02] MEDS ORDERED: methylPREDNISolone SOD SUCC PF 40 MG/ML VIAL. IM ONE (13:15)
[2019-06-02] MEDS ORDERED: LIDOCAINE 1% Multi-Dose 20 ML VIAL. IJ ONE (13:15)
[2019-06-02] MEDS ORDERED: LIDOCAINE 1% Multi-Dose 20 ML VIAL. IJ PRN (14:00)
[2019-06-02] MEDS ORDERED: methylPREDNISolone SOD SUCC PF 40 MG/ML VIAL. IM PRN (14:00)
[2019-06-02 15:17] VITALS: BP 107/67
[2019-06-02] MEDS: FINASTERIDE 5 MG TABLET PO SCH (20:24)
[2019-06-02] MEDS: clonazePAM 1 MG TABLET PO SCH (20:24)
[2019-06-02] MEDS: risperiDONE ORAL 1 MG/ML 30ml BOTTLE. SL SCH (21:00)
--- NOTE | 2019-06-03 00:23 | PN ---
DATE: 06/02/2019 SUBJECTIVE: The patient was seen today, met with the staff, chart reviewed and also covering for Dr. Fonseca. Staff reports no major behavior problems. The patient is currently on wheelchair and episodes of agitation, periods of confusion, exhibiting poor impulse control, also aggressive behaviors. OBSERVATION: VITAL SIGNS: Temperature 97.7, blood pressure 131/69, pulse 83, respirations 18, O2 sat 100%. GENERAL: Slept about 7 hours last night. The patient's appetite is fair. MEDICATIONS: The patient's medications were reviewed and is currently on Zoloft 150 mg daily, Risperdal 0.5 mg at night, doxepin 10 mg at bedtime p.r.n. LABORATORY DATA: The patient's lab reviewed. ASSESSMENT: Major neurocognitive disorder, multifactorial, most likely vascular with delusions; anxiety disorder, unspecified. PLAN: Continue with the current treatment plan. LENGTH OF STAY: 5-7 days. RIO MENJIVAR MD DR: ALEJANDRA/pramod JOB#: [id number] / [id number]
[2019-06-03] MEDS: ACETAMINOPHEN 325 MG TABLET PO PRN (04:03)
[2019-06-03 05:11] VITALS: BP 116/71
[2019-06-03] MEDS: METOPROLOL SUCC 24HR ER 25 MG TAB.ER.24H. PO SCH (08:30)
[2019-06-03] MEDS: SERTRALINE 50 MG TABLET. PO SCH (08:30)
[2019-06-03] MEDS: TAMSULOSIN 0.4 MG CAP.ER.24H. PO SCH (08:30)
[2019-06-03] MEDS: HYDROcodone/APAP 5/325MG 1 TAB TABLET PO SCH ×3 (08:30→19:31)
[2019-06-03] MEDS: PANTOPRAZOLE 40 MG TABLET. PO SCH (08:31)
[2019-06-03] MEDS: DICYCLOMINE HCL 10 MG CAPSULE PO SCH ×4 (08:31→19:31)
[2019-06-03 15:22] VITALS: BP 105/66
--- NOTE | 2019-06-03 15:43 | PN ---
DATE: 06/03/2019 SUBJECTIVE: The patient was seen today, met with the staff, chart reviewed. Staff reports no major problems. The patient is pleasant, calm, has not exhibited any major behavior problems except complaining of chronic pain with the shoulders and his knees and the patient states he does not want to take any steroid injections because he had lot of problems in the past. OBSERVATION: VITAL SIGNS: Temperature 97.5, blood pressure 116/71, pulse 83, respirations 18, O2 sat 100%. The patient slept about 4 hours last night. His appetite is good. MEDICATIONS: The patient's current medications include Zoloft 250 mg daily, Risperdal 0.5 mg at night, doxepin 10 mg at bedtime p.r.n. LABORATORY DATA: The patient's lab reviewed. ASSESSMENT: 1. Major neurocognitive disorder, multifactorial, most likely vascular with delusions. 2. Anxiety disorder, unspecified. PLAN: To continue with the current treatment. LENGTH OF STAY: 5-7 days. RIO MENJIVAR MD DR: ALEJANDRA/pramod JOB#: [id number] / [id number]
[2019-06-03] MEDS: risperiDONE ORAL 1 MG/ML 30ml BOTTLE. SL SCH (19:30)
[2019-06-03] MEDS: clonazePAM 1 MG TABLET PO SCH (19:31)
[2019-06-03] MEDS: FINASTERIDE 5 MG TABLET PO SCH (19:31)
[2019-06-04] MEDS: ACETAMINOPHEN 325 MG TABLET PO PRN (03:54)
[2019-06-04 06:43] VITALS: BP 117/71
[2019-06-04] MEDS: SERTRALINE 50 MG TABLET. PO SCH (08:16)
[2019-06-04] MEDS: HYDROcodone/APAP 5/325MG 1 TAB TABLET PO SCH ×3 (08:16→21:07)
[2019-06-04] MEDS: PANTOPRAZOLE 40 MG TABLET. PO SCH (08:16)
[2019-06-04] MEDS: DICYCLOMINE HCL 10 MG CAPSULE PO SCH ×4 (08:16→21:07)
[2019-06-04] MEDS: TAMSULOSIN 0.4 MG CAP.ER.24H. PO SCH (08:16)
[2019-06-04] MEDS: METOPROLOL SUCC 24HR ER 25 MG TAB.ER.24H. PO SCH (08:17)
[2019-06-04 15:26] VITALS: BP 114/66
[2019-06-04] MEDS ORDERED: risperiDONE ORAL 1 MG/ML 30ml BOTTLE. PO SCH (21:00)
[2019-06-04] MEDS: FINASTERIDE 5 MG TABLET PO SCH (21:07)
[2019-06-04] MEDS: clonazePAM 1 MG TABLET PO SCH (21:07)
[2019-06-04] MEDS: risperiDONE 0.5 MG TABLET. PO SCH (21:07)
--- NOTE | 2019-06-04 21:25 | PDOC ---
Exam Note: Apolinar Note: Please also refer to the separate dictated note~for this date of service dictated separately.~Patient seen individually. Discussed the patient with Nursing staff reviewed the chart.~Reviewed interim history and current functioning. Reviewed vital signs,~Labs/ Radiology~and current medications noted below. Continue current treatment with the changes noted in the dictated addendum note Assessment: Vital Signs/I&O: Vital Signs Date Time Temp Pulse Resp B/P (MAP) Pulse Ox O2 Delivery O2 Flow Rate FiO2 06/04/19 21:07 Room Air 06/04/19 15:26 97.7 71 16 114/66 (82) 95 I & O 06/03/19 06/03/19 06/04/19 15:00 23:00 07:00 Intake Total 720 ml 480 ml Balance 720 ml 480 ml Current Medications: Meds: Current Medications Medications (Trade) Dose Ordered Sig/Mikel Route PRN Reason Start Time Stop Time Status Last Admin Dose Admin Risperidone (RisperDAL) 0.5 mg HS PO 06/04/19 21:00 06/04/19 21:07 I have reviewed the current psychotropics carefully including drug interactions. Risk benefit ratio favors no change other than as noted in my dictated progress note. Diagnosis: Problems: (1) Dementia, vascular, with depression (2) Dementia, vascular, with delusions (3) Anxiety disorder (4) Major depressive disorder, recurrent episode (5) Major neurocognitive disorder, due to vascular disease, with behavioral disturbance, mild (6) Mild cognitive disorder (7) Impulse control disorder OTIS SHEPHERD MD Jun 04, 2019 21:25
[2019-06-05 04:59] VITALS: BP 160/63
--- NOTE | 2019-06-05 05:13 | PN ---
DATE: 06/01/2019 PSYCHIATRIC PROGRESS NOTE This late entry, 06/01, covers elements not covered in my initial note. SUBJECTIVE: I met with the patient evening of 06/01. Per Fran RN, the patient slept reasonably previous night. He does complain of back pain, received Tylenol for this. X-ray has been done per Dr. Awad. He is compliant with his medications, remains on IM Rocephin for the UTI. REVIEW OF SYSTEMS: Ambulation impaired, in wheelchair. No CV, , pulmonary, eye system symptoms on review. MENTAL STATUS EXAM: Reasonably oriented to himself and situation. Speech has some latency, coherent, often responses monosyllabic. Abstraction fair, computation impaired, language function intact. Mood and affect somewhat withdrawn at times. LABORATORY DATA: Reviewed. IMPRESSION: Major depressive disorder, recurrent with psychotic features, in partial remission; impulse control disorder; mild cognitive impairment; urinary tract infection. PLAN: Treat the UTI. Continue rest of the psychotropics unchanged. Klonopin is being tapered. Continue Zoloft and Risperdal, latter as an antipsychotic. He is currently at 0.5 mg at bedtime, may reduce this in due course. OTIS SHEPHERD MD DR: DEMETRIO/pramod JOB#: [id number] / [id number]
[2019-06-05 07:01] LABS: BASO % 1 % (0-3); EOS # 0.1 x10^3/uL (0.0-0.7); EOS % 4 % (0-3); HEMATOCRIT 36.7 % (39.0-53.0); LYMPH # 0.6 x10^3/uL (1.0-4.8); LYMPH % 16 % (24-48); MEAN CORPUSCULAR HEMOGLOBIN 27 pg (25-35); MEAN CORPUSCULAR HGB CONC 33 g/dL (31-37); MEAN CORPUSCULAR VOLUME 82 fL (79-100); MONO # 0.3 x10^3/uL (0.0-1.1); MONO % 7 % (0-9); NEUT # 2.7 x10^3uL (1.8-7.7); NEUT % 72 % (31-73); PLATELET COUNT 144 x10^3/uL (140-400); RED BLOOD COUNT 4.46 x10^6/uL (4.30-5.70); RED CELL DISTRIBUTION WIDTH 16.2 % (11.5-14.5); WHITE BLOOD COUNT 3.7 x10^3/uL (4.0-11.0)
[2019-06-05 07:15] LABS: ALBUMIN 3.3 g/dL (3.4-5.0); ALBUMIN/GLOBULIN RATIO 0.9 (1.0-1.7); CALCIUM 9.3 mg/dL (8.5-10.1); CREATININE 1.1 mg/dL (0.7-1.3); GFR 64.4; POTASSIUM 3.6 mmol/L (3.5-5.1); TOTAL BILIRUBIN 0.2 mg/dL (0.2-1.0)
[2019-06-05] MEDS: SERTRALINE 50 MG TABLET. PO SCH (08:18)
[2019-06-05] MEDS: HYDROcodone/APAP 5/325MG 1 TAB TABLET PO SCH ×3 (08:19→19:54)
[2019-06-05] MEDS: METOPROLOL SUCC 24HR ER 25 MG TAB.ER.24H. PO SCH (08:19)
[2019-06-05] MEDS: DICYCLOMINE HCL 10 MG CAPSULE PO SCH ×4 (08:19→19:54)
[2019-06-05] MEDS: PANTOPRAZOLE 40 MG TABLET. PO SCH (08:20)
[2019-06-05] MEDS: TAMSULOSIN 0.4 MG CAP.ER.24H. PO SCH (08:20)
[2019-06-05] MEDS: ACETAMINOPHEN 325 MG TABLET PO PRN (13:06)
[2019-06-05 15:42] VITALS: BP 129/73
[2019-06-05] MEDS: clonazePAM 1 MG TABLET PO SCH (19:53)
[2019-06-05] MEDS: FINASTERIDE 5 MG TABLET PO SCH (19:53)
[2019-06-05] MEDS: risperiDONE 0.5 MG TABLET. PO SCH (19:53)
--- NOTE | 2019-06-05 22:02 | PDOC ---
Exam Note: Apolinar Note: Please also refer to the separate dictated note~for this date of service dictated separately.~Patient seen individually. Discussed the patient with Nursing staff reviewed the chart.~Reviewed interim history and current functioning. Reviewed vital signs,~Labs/ Radiology~and current medications noted below. Continue current treatment with the changes noted in the dictated addendum note Assessment: Vital Signs/I&O: Vital Signs Date Time Temp Pulse Resp B/P (MAP) Pulse Ox O2 Delivery O2 Flow Rate FiO2 06/05/19 20:54 16 98 Room Air 06/05/19 15:42 98.6 74 129/73 (91) I & O 06/04/19 06/04/19 06/05/19 15:00 23:00 07:00 Intake Total 600 ml 120 ml Balance 600 ml 120 ml Labs: Laboratory Tests Test 06/05/19 06:53 White Blood Count 3.7 x10^3/uL (4.0-11.0) L Red Blood Count 4.46 x10^6/uL (4.30-5.70) Hemoglobin 12.0 g/dL (13.0-17.5) L Hematocrit 36.7 % (39.0-53.0) L Mean Corpuscular Volume 82 fL (79-100) Mean Corpuscular Hemoglobin 27 pg (25-35) Mean Corpuscular Hemoglobin Concent 33 g/dL (31-37) Red Cell Distribution Width 16.2 % (11.5-14.5) H Platelet Count 144 x10^3/uL (140-400) Neutrophils (%) (Auto) 72 % (31-73) Lymphocytes (%) (Auto) 16 % (24-48) L Monocytes (%) (Auto) 7 % (0-9) Eosinophils (%) (Auto) 4 % (0-3) H Basophils (%) (Auto) 1 % (0-3) Neutrophils # (Auto) 2.7 x10^3uL (1.8-7.7) Lymphocytes # (Auto) 0.6 x10^3/uL (1.0-4.8) L Monocytes # (Auto) 0.3 x10^3/uL (0.0-1.1) Eosinophils # (Auto) 0.1 x10^3/uL (0.0-0.7) Basophils # (Auto) 0.0 x10^3/uL (0.0-0.2) Sodium Level 141 mmol/L (136-145) Potassium Level 3.6 mmol/L (3.5-5.1) Chloride Level 105 mmol/L (98-107) Carbon Dioxide Level 25 mmol/L (21-32) Anion Gap 11 (6-14) Blood Urea Nitrogen 15 mg/dL (8-26) Creatinine 1.1 mg/dL (0.7-1.3) Estimated GFR (Cockcroft-Gault) 64.4 BUN/Creatinine Ratio 14 (6-20) Glucose Level 97 mg/dL (70-99) Calcium Level 9.3 mg/dL (8.5-10.1) Total Bilirubin 0.2 mg/dL (0.2-1.0) Aspartate Amino Transferase (AST) 32 U/L (15-37) Alanine Aminotransferase (ALT) 17 U/L (16-63) Alkaline Phosphatase 82 U/L (46-116) Total Protein 7.0 g/dL (6.4-8.2) Albumin 3.3 g/dL (3.4-5.0) L Albumin/Globulin Ratio 0.9 (1.0-1.7) L Current Medications: I have reviewed the current psychotropics carefully including drug interactions. Risk benefit ratio favors no change other than as noted in my dictated progress note. Diagnosis: Problems: (1) Dementia, vascular, with depression (2) Dementia, vascular, with delusions (3) Anxiety disorder (4) Major depressive disorder, recurrent episode (5) Major neurocognitive disorder, due to vascular disease, with behavioral disturbance, mild (6) Mild cognitive disorder (7) Impulse control disorder OTIS SHEPHERD MD Jun 05, 2019 22:02
--- NOTE | 2019-06-06 01:05 | PN ---
DATE: 06/04/2019 This late entry 06/04/2019 covers elements not covered in my initial note. SUBJECTIVE: I met with the patient evening of 06/04/2019. Per report from nursing staff, the patient slept 5-1/2 hours previous night. Also reviewed information with Dr. Ayala, who covered for me over the past couple of days. The patient refused his dinner, then was telling me that staff did not offer it to him. He is constantly wanting to ambulate in a wheelchair rather than trying to walk by himself with assistance. REVIEW OF SYSTEMS: No CV, , pulmonary, eye, ENT system symptoms on review. MENTAL STATUS EXAM: Oriented to himself and situation. Speech is coherent, abstraction fair, computation impaired, language function intact, attention span short. Mood and affect remain somewhat anxious, labile at times. LABORATORY DATA: Reviewed. IMPRESSION: Major depressive disorder in partial remission, impulse control disorder; anxiety disorder, unspecified; mild cognitive impairment; status post urinary tract infection. PLAN: Continue psychotropics from initial note, Klonopin 1 mg at bedtime, Zoloft 150 mg a day, Risperdal 0.5 mg at bedtime. Adjust further as clinically indicated. MAN Selma SHEPHERD MD DR: DEMETRIO/pramod JOB#: [id number] / [id number]
[2019-06-06] MEDS: HYDROcodone/APAP 5/325MG 1 TAB TABLET PO SCH ×3 (05:16→19:57)
[2019-06-06 06:42] VITALS: BP 132/76
[2019-06-06] MEDS: TAMSULOSIN 0.4 MG CAP.ER.24H. PO SCH (07:51)
[2019-06-06] MEDS: PANTOPRAZOLE 40 MG TABLET. PO SCH (07:51)
[2019-06-06] MEDS: DICYCLOMINE HCL 10 MG CAPSULE PO SCH ×4 (07:52→19:52)
[2019-06-06] MEDS: METOPROLOL SUCC 24HR ER 25 MG TAB.ER.24H. PO SCH (07:52)
[2019-06-06] MEDS: SERTRALINE 50 MG TABLET. PO SCH (07:52)
[2019-06-06] MEDS: ACETAMINOPHEN 325 MG TABLET PO PRN (12:02)
[2019-06-06 15:36] VITALS: BP 143/82
[2019-06-06] MEDS: FINASTERIDE 5 MG TABLET PO SCH (19:52)
[2019-06-06] MEDS: risperiDONE 0.5 MG TABLET. PO SCH (19:52)
[2019-06-06] MEDS: clonazePAM 1 MG TABLET PO SCH (19:57)
--- NOTE | 2019-06-06 20:56 | PN ---
DATE: 06/05/2019 PSYCHIATRIC PROGRESS NOTE This late entry 06/05/2019 covers elements not covered in my initial note. SUBJECTIVE: I met with the patient evening of 06/05/2019. Per JACK Burrell, the patient slept 6-3/4 hours previous night. 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 Later, he did better, less anxious. He is obsessed about wanting oatmeal for breakfast because of constipation and I will defer this to nursing staff to coordinate with dietary. REVIEW OF SYSTEMS: No CV, , pulmonary, eye system symptoms on review. MENTAL STATUS EXAM: Oriented to himself and situation. Speech has some latency, coherent. Abstraction fair, computation impaired, language function intact, attention span short. Mood and affect remain somewhat dysphoric, withdrawn and he minimizes this. LABORATORY DATA: Reviewed. IMPRESSION: Major depressive disorder, recurrent, impulse control disorder; anxiety disorder, unspecified; mild cognitive impairment. PLAN: Continue Risperdal, Zoloft at current dosage. May need to taper the Klonopin gradually. Rest unchanged for now. MAN Selma SHEPHERD MD DR: DEMETRIO/pramod JOB#: [id number] / [id number]
--- NOTE | 2019-06-06 21:37 | PDOC ---
Exam Note: Apolinar Note: Please also refer to the separate dictated note~for this date of service dictated separately.~Patient seen individually. Discussed the patient with Nursing staff reviewed the chart.~Reviewed interim history and current functioning. Reviewed vital signs,~Labs/ Radiology~and current medications noted below. Continue current treatment with the changes noted in the dictated addendum note Assessment: Vital Signs/I&O: Vital Signs Date Time Temp Pulse Resp B/P (MAP) Pulse Ox O2 Delivery O2 Flow Rate FiO2 06/06/19 19:57 Room Air 06/06/19 16:50 18 97 06/06/19 15:36 97.1 88 143/82 (102) I & O 06/05/19 06/05/19 06/06/19 15:00 23:00 07:00 Intake Total 600 ml 240 ml 100 ml Balance 600 ml 240 ml 100 ml Current Medications: I have reviewed the current psychotropics carefully including drug interactions. Risk benefit ratio favors no change other than as noted in my dictated progress note. Diagnosis: Problems: (1) Dementia, vascular, with depression (2) Dementia, vascular, with delusions (3) Anxiety disorder (4) Major depressive disorder, recurrent episode (5) Major neurocognitive disorder, due to vascular disease, with behavioral disturbance, mild (6) Mild cognitive disorder (7) Impulse control disorder OTIS SHEPHERD MD Jun 06, 2019 21:37
[2019-06-07] MEDS: ACETAMINOPHEN 325 MG TABLET PO PRN ×3 (01:41→15:53)
[2019-06-07 05:38] VITALS: BP 126/72
[2019-06-07] MEDS: HYDROcodone/APAP 5/325MG 1 TAB TABLET PO SCH ×3 (05:52→20:21)
[2019-06-07] MEDS: PANTOPRAZOLE 40 MG TABLET. PO SCH (07:56)
[2019-06-07] MEDS: DICYCLOMINE HCL 10 MG CAPSULE PO SCH ×4 (07:56→20:21)
[2019-06-07] MEDS: TAMSULOSIN 0.4 MG CAP.ER.24H. PO SCH (07:57)
[2019-06-07] MEDS: SERTRALINE 50 MG TABLET. PO SCH (07:57)
[2019-06-07] MEDS: METOPROLOL SUCC 24HR ER 25 MG TAB.ER.24H. PO SCH (07:57)
[2019-06-07 16:04] VITALS: BP 130/83
[2019-06-07] MEDS: FINASTERIDE 5 MG TABLET PO SCH (20:21)
[2019-06-07] MEDS: risperiDONE 0.5 MG TABLET. PO SCH (20:21)
[2019-06-07] MEDS: clonazePAM 1 MG TABLET PO SCH (20:21)
--- NOTE | 2019-06-07 21:29 | PDOC ---
Exam Note: Apolinar Note: Please also refer to the separate dictated note~for this date of service dictated separately.~Patient seen individually. Discussed the patient with Nursing staff reviewed the chart.~Reviewed interim history and current functioning. Reviewed vital signs,~Labs/ Radiology~and current medications noted below. Continue current treatment with the changes noted in the dictated addendum note Assessment: Vital Signs/I&O: Vital Signs Date Time Temp Pulse Resp B/P (MAP) Pulse Ox O2 Delivery O2 Flow Rate FiO2 06/07/19 16:04 98.0 101 20 130/83 (99) 98 06/07/19 14:32 Room Air I & O 06/06/19 06/06/19 06/07/19 15:00 23:00 07:00 Intake Total 840 ml 600 ml Balance 840 ml 600 ml Current Medications: I have reviewed the current psychotropics carefully including drug interactions. Risk benefit ratio favors no change other than as noted in my dictated progress note. Diagnosis: Problems: (1) Dementia, vascular, with depression (2) Dementia, vascular, with delusions (3) Anxiety disorder (4) Major depressive disorder, recurrent episode (5) Major neurocognitive disorder, due to vascular disease, with behavioral disturbance, mild (6) Mild cognitive disorder (7) Impulse control disorder OTIS SHEPHERD MD Jun 07, 2019 21:29
[2019-06-08] MEDS: ACETAMINOPHEN 325 MG TABLET PO PRN (04:51)
[2019-06-08 05:22] VITALS: BP 138/78
[2019-06-08] MEDS: METOPROLOL SUCC 24HR ER 25 MG TAB.ER.24H. PO SCH (07:53)
[2019-06-08] MEDS: DICYCLOMINE HCL 10 MG CAPSULE PO SCH ×4 (07:53→20:02)
[2019-06-08] MEDS: TAMSULOSIN 0.4 MG CAP.ER.24H. PO SCH (07:53)
[2019-06-08] MEDS: SERTRALINE 50 MG TABLET. PO SCH (07:53)
[2019-06-08] MEDS: HYDROcodone/APAP 5/325MG 1 TAB TABLET PO SCH ×3 (07:54→20:03)
[2019-06-08] MEDS: PANTOPRAZOLE 40 MG TABLET. PO SCH (07:54)
--- NOTE | 2019-06-08 08:54 | PN ---
DATE: 06/06/2019 PSYCHIATRIC PROGRESS NOTE This late entry 06/06/2019 covers elements not covered in my initial note. SUBJECTIVE: I met with the patient evening of 06/06/2019. Per JACK Peters, the patient slept 6-1/2 hours previous night. He has been calmer, cooperative, somewhat isolative, but coming out to the day room. REVIEW OF SYSTEMS: No CV, , PULMONARY, EYE system symptoms on review. MENTAL STATUS EXAM: The patient is reasonably oriented. Speech has some latency, coherent. Abstraction fair, computation impaired, language function intact. He is much less psychotic, pleased that he got oatmeal for breakfast and had a bowel movement, processed this with him. LABORATORY DATA: Reviewed. IMPRESSION: Major depressive disorder with psychotic features; impulse control disorder; anxiety disorder, unspecified; status post urinary tract infection. PLAN: Continue psychotropics from initial note, Risperdal 0.5 mg at bedtime, Zoloft 150 mg a day, Klonopin 1 mg at bedtime. MAN Selma SHEPHERD MD DR: DEMETRIO/pramod JOB#: [id number] / [id number]
--- NOTE | 2019-06-08 09:23 | PN ---
DATE: 06/07/2019 PSYCHIATRIC PROGRESS NOTE This late entry 06/07/2019 covers elements not covered in my initial note. SUBJECTIVE: I met with the patient in the evening and staffed at a treatment team meeting with the entire team in the morning. The patient slept 6-1/2 hours previous night. Appetite is 50%. We are awaiting psychological testing with Dr. Lubin for diagnostic clarification. In the meantime, the patient is much less paranoid, suspicious more appropriate. REVIEW OF SYSTEMS: No CV, , pulmonary, eye system symptoms on review. MENTAL STATUS EXAM: Reasonably oriented. Speech is coherent, abstraction fair, computation impaired, language function intact. Mood and affect showing improvement. LABORATORY DATA: Reviewed. IMPRESSION: Unchanged from initial note. PLAN: No change from initial note. MAN Selma SHEPHERD MD DR: DEMETRIO/pramod JOB#: [id number] / [id number]
[2019-06-08 15:41] VITALS: BP 109/65
[2019-06-08] MEDS: clonazePAM 1 MG TABLET PO SCH (20:02)
[2019-06-08] MEDS: FINASTERIDE 5 MG TABLET PO SCH (20:02)
[2019-06-08] MEDS: risperiDONE 0.5 MG TABLET. PO SCH (20:03)
--- NOTE | 2019-06-08 21:38 | PDOC ---
Exam Note: Apolinar Note: Please also refer to the separate dictated note~for this date of service dictated separately.~Patient seen individually. Discussed the patient with Nursing staff reviewed the chart.~Reviewed interim history and current functioning. Reviewed vital signs,~Labs/ Radiology~and current medications noted below. Continue current treatment with the changes noted in the dictated addendum note Assessment: Vital Signs/I&O: Vital Signs Date Time Temp Pulse Resp B/P (MAP) Pulse Ox O2 Delivery O2 Flow Rate FiO2 06/08/19 16:18 16 98 Room Air 06/08/19 15:41 97.9 72 109/65 (80) I & O 06/07/19 06/07/19 06/08/19 15:00 23:00 07:00 Intake Total 560 ml 720 ml Balance 560 ml 720 ml Current Medications: I have reviewed the current psychotropics carefully including drug interactions. Risk benefit ratio favors no change other than as noted in my dictated progress note. Diagnosis: Problems: (1) Dementia, vascular, with depression (2) Dementia, vascular, with delusions (3) Anxiety disorder (4) Major depressive disorder, recurrent episode (5) Major neurocognitive disorder, due to vascular disease, with behavioral disturbance, mild (6) Mild cognitive disorder (7) Impulse control disorder OTIS SHEPHERD MD Jun 08, 2019 21:38
[2019-06-09] MEDS: ACETAMINOPHEN 325 MG TABLET PO PRN ×3 (01:56→18:42)
[2019-06-09 02:02] VITALS: BP 162/84
[2019-06-09 02:15] VITALS: BP 174/94
[2019-06-09 05:38] VITALS: BP 133/73
[2019-06-09] MEDS: METOPROLOL SUCC 24HR ER 25 MG TAB.ER.24H. PO SCH (08:08)
[2019-06-09] MEDS: SERTRALINE 50 MG TABLET. PO SCH (08:08)
[2019-06-09] MEDS: DICYCLOMINE HCL 10 MG CAPSULE PO SCH ×4 (08:08→20:11)
[2019-06-09] MEDS: TAMSULOSIN 0.4 MG CAP.ER.24H. PO SCH (08:08)
[2019-06-09] MEDS: PANTOPRAZOLE 40 MG TABLET. PO SCH (08:09)
[2019-06-09] MEDS: HYDROcodone/APAP 5/325MG 1 TAB TABLET PO SCH ×3 (08:10→20:11)
[2019-06-09 15:47] VITALS: BP 129/72
[2019-06-09] MEDS: clonazePAM 1 MG TABLET PO SCH (20:11)
[2019-06-09] MEDS: risperiDONE 0.5 MG TABLET. PO SCH (20:11)
[2019-06-09] MEDS: FINASTERIDE 5 MG TABLET PO SCH (20:11)
[2019-06-10] MEDS: ACETAMINOPHEN 325 MG TABLET PO PRN ×3 (05:09→21:22)
[2019-06-10 06:07] VITALS: BP 134/72
[2019-06-10] MEDS: PANTOPRAZOLE 40 MG TABLET. PO SCH (07:43)
[2019-06-10] MEDS: TAMSULOSIN 0.4 MG CAP.ER.24H. PO SCH (07:43)
[2019-06-10] MEDS: DICYCLOMINE HCL 10 MG CAPSULE PO SCH ×4 (07:43→20:11)
[2019-06-10] MEDS: SERTRALINE 50 MG TABLET. PO SCH (07:43)
[2019-06-10] MEDS: HYDROcodone/APAP 5/325MG 1 TAB TABLET PO SCH ×3 (07:43→20:11)
[2019-06-10] MEDS: METOPROLOL SUCC 24HR ER 25 MG TAB.ER.24H. PO SCH (07:44)
[2019-06-10 08:23] LABS: BASO % 1 % (0-3); EOS # 0.3 x10^3/uL (0.0-0.7); EOS % 8 % (0-3); HEMATOCRIT 33.2 % (39.0-53.0); HEMOGLOBIN 10.7 g/dL (13.0-17.5); LYMPH # 0.8 x10^3/uL (1.0-4.8); LYMPH % 20 % (24-48); MEAN CORPUSCULAR HEMOGLOBIN 27 pg (25-35); MEAN CORPUSCULAR HGB CONC 32 g/dL (31-37); MEAN CORPUSCULAR VOLUME 83 fL (79-100); MONO # 0.3 x10^3/uL (0.0-1.1); MONO % 8 % (0-9); NEUT # 2.6 x10^3uL (1.8-7.7); NEUT % 64 % (31-73); PLATELET COUNT 130 x10^3/uL (140-400); RED BLOOD COUNT 3.99 x10^6/uL (4.30-5.70); RED CELL DISTRIBUTION WIDTH 16.4 % (11.5-14.5); WHITE BLOOD COUNT 4.1 x10^3/uL (4.0-11.0)
[2019-06-10 08:32] LABS: ALBUMIN/GLOBULIN RATIO 0.9 (1.0-1.7); CALCIUM 8.8 mg/dL (8.5-10.1); CREATININE 1.1 mg/dL (0.7-1.3); GFR 64.4; POTASSIUM 4.2 mmol/L (3.5-5.1); TOTAL BILIRUBIN 0.2 mg/dL (0.2-1.0); TOTAL PROTEIN 6.4 g/dL (6.4-8.2)
[2019-06-10 16:08] VITALS: BP 137/83
[2019-06-10] MEDS: risperiDONE 0.5 MG TABLET. PO SCH (20:11)
[2019-06-10] MEDS: FINASTERIDE 5 MG TABLET PO SCH (20:11)
[2019-06-10] MEDS: clonazePAM 1 MG TABLET PO SCH (20:12)
--- NOTE | 2019-06-10 21:47 | PDOC ---
Exam Note: Apolinar Note: This is a late entry for DOS 06/09/2019. VS - Last 72 Hours, by Label Date Time Temp Pulse Resp B/P (MAP) Pulse Ox O2 Delivery O2 Flow Rate FiO2 06/10/19 16:08 97.4 104 20 137/83 (101) 98 06/10/19 15:13 16 06/10/19 13:56 16 06/10/19 08:48 18 06/10/19 07:44 77 134/72 06/10/19 07:43 18 06/10/19 06:07 97.7 77 16 134/72 (92) 97 Room Air 06/09/19 21:17 18 98 Room Air 06/09/19 20:11 98 06/09/19 15:47 97.5 81 18 129/72 (91) 98 06/09/19 14:55 16 96 Room Air 06/09/19 13:44 16 96 Room Air 06/09/19 10:01 16 96 Room Air 06/09/19 08:10 96 Room Air 06/09/19 08:08 86 133/73 06/09/19 05:38 97.2 86 18 133/73 (93) 96 06/09/19 02:15 97.0 100 174/94 (120) 100 06/09/19 02:02 88 18 162/84 (110) 99 06/08/19 16:18 16 98 Room Air 06/08/19 15:41 97.9 72 18 109/65 (80) 98 06/08/19 13:59 16 99 Room Air 06/08/19 11:40 16 99 Room Air 06/08/19 07:54 16 99 Room Air 06/08/19 07:53 74 138/78 06/08/19 05:22 98.0 74 21 138/78 (98) 99 Please also refer to the separate dictated note~for this date of service dictated separately.~Patient seen individually. Discussed the patient with Nursing staff reviewed the chart.~Reviewed interim history and current functioning. Reviewed vital signs,~Labs/ Radiology~and current medications noted below. Continue current treatment with the changes noted in the dictated addendum note Assessment: Vital Signs/I&O: Vital Signs Date Time Temp Pulse Resp B/P (MAP) Pulse Ox O2 Delivery O2 Flow Rate FiO2 06/10/19 16:08 97.4 104 20 137/83 (101) 98 06/10/19 06:07 Room Air I & O 06/09/19 06/09/19 06/10/19 15:00 23:00 07:00 Intake Total 960 ml 720 ml Balance 960 ml 720 ml Labs: Laboratory Tests Test 06/10/19 07:46 White Blood Count 4.1 x10^3/uL (4.0-11.0) Red Blood Count 3.99 x10^6/uL (4.30-5.70) L Hemoglobin 10.7 g/dL (13.0-17.5) L Hematocrit 33.2 % (39.0-53.0) L Mean Corpuscular Volume 83 fL (79-100) Mean Corpuscular Hemoglobin 27 pg (25-35) Mean Corpuscular Hemoglobin Concent 32 g/dL (31-37) Red Cell Distribution Width 16.4 % (11.5-14.5) H Platelet Count 130 x10^3/uL (140-400) L Neutrophils (%) (Auto) 64 % (31-73) Lymphocytes (%) (Auto) 20 % (24-48) L Monocytes (%) (Auto) 8 % (0-9) Eosinophils (%) (Auto) 8 % (0-3) H Basophils (%) (Auto) 1 % (0-3) Neutrophils # (Auto) 2.6 x10^3uL (1.8-7.7) Lymphocytes # (Auto) 0.8 x10^3/uL (1.0-4.8) L Monocytes # (Auto) 0.3 x10^3/uL (0.0-1.1) Eosinophils # (Auto) 0.3 x10^3/uL (0.0-0.7) Basophils # (Auto) 0.0 x10^3/uL (0.0-0.2) Sodium Level 141 mmol/L (136-145) Potassium Level 4.2 mmol/L (3.5-5.1) Chloride Level 105 mmol/L (98-107) Carbon Dioxide Level 29 mmol/L (21-32) Anion Gap 7 (6-14) Blood Urea Nitrogen 12 mg/dL (8-26) Creatinine 1.1 mg/dL (0.7-1.3) Estimated GFR (Cockcroft-Gault) 64.4 BUN/Creatinine Ratio 11 (6-20) Glucose Level 91 mg/dL (70-99) Calcium Level 8.8 mg/dL (8.5-10.1) Total Bilirubin 0.2 mg/dL (0.2-1.0) Aspartate Amino Transferase (AST) 16 U/L (15-37) Alanine Aminotransferase (ALT) 13 U/L (16-63) L Alkaline Phosphatase 71 U/L (46-116) Total Protein 6.4 g/dL (6.4-8.2) Albumin 3.0 g/dL (3.4-5.0) L Albumin/Globulin Ratio 0.9 (1.0-1.7) L Current Medications: I have reviewed the current psychotropics carefully including drug interactions. Risk benefit ratio favors no change other than as noted in my dictated progress note. Diagnosis: Problems: (1) Dementia, vascular, with depression (2) Dementia, vascular, with delusions (3) Anxiety disorder (4) Major depressive disorder, recurrent episode (5) Major neurocognitive disorder, due to vascular disease, with behavioral disturbance, mild (6) Mild cognitive disorder (7) Impulse control disorder OTIS SHEPHERD MD Jun 10, 2019 21:47
--- NOTE | 2019-06-10 22:00 | PDOC ---
Exam Note: Apolinar Note: Please also refer to the separate dictated note~for this date of service dictated separately.~Patient seen individually. Discussed the patient with Nursing staff reviewed the chart.~Reviewed interim history and current functioning. Reviewed vital signs,~Labs/ Radiology~and current medications noted below. Continue current treatment with the changes noted in the dictated addendum note Assessment: Vital Signs/I&O: Vital Signs Date Time Temp Pulse Resp B/P (MAP) Pulse Ox O2 Delivery O2 Flow Rate FiO2 06/10/19 16:08 97.4 104 20 137/83 (101) 98 06/10/19 06:07 Room Air I & O 06/09/19 06/09/19 06/10/19 15:00 23:00 07:00 Intake Total 960 ml 720 ml Balance 960 ml 720 ml Labs: Laboratory Tests Test 06/10/19 07:46 White Blood Count 4.1 x10^3/uL (4.0-11.0) Red Blood Count 3.99 x10^6/uL (4.30-5.70) L Hemoglobin 10.7 g/dL (13.0-17.5) L Hematocrit 33.2 % (39.0-53.0) L Mean Corpuscular Volume 83 fL (79-100) Mean Corpuscular Hemoglobin 27 pg (25-35) Mean Corpuscular Hemoglobin Concent 32 g/dL (31-37) Red Cell Distribution Width 16.4 % (11.5-14.5) H Platelet Count 130 x10^3/uL (140-400) L Neutrophils (%) (Auto) 64 % (31-73) Lymphocytes (%) (Auto) 20 % (24-48) L Monocytes (%) (Auto) 8 % (0-9) Eosinophils (%) (Auto) 8 % (0-3) H Basophils (%) (Auto) 1 % (0-3) Neutrophils # (Auto) 2.6 x10^3uL (1.8-7.7) Lymphocytes # (Auto) 0.8 x10^3/uL (1.0-4.8) L Monocytes # (Auto) 0.3 x10^3/uL (0.0-1.1) Eosinophils # (Auto) 0.3 x10^3/uL (0.0-0.7) Basophils # (Auto) 0.0 x10^3/uL (0.0-0.2) Sodium Level 141 mmol/L (136-145) Potassium Level 4.2 mmol/L (3.5-5.1) Chloride Level 105 mmol/L (98-107) Carbon Dioxide Level 29 mmol/L (21-32) Anion Gap 7 (6-14) Blood Urea Nitrogen 12 mg/dL (8-26) Creatinine 1.1 mg/dL (0.7-1.3) Estimated GFR (Cockcroft-Gault) 64.4 BUN/Creatinine Ratio 11 (6-20) Glucose Level 91 mg/dL (70-99) Calcium Level 8.8 mg/dL (8.5-10.1) Total Bilirubin 0.2 mg/dL (0.2-1.0) Aspartate Amino Transferase (AST) 16 U/L (15-37) Alanine Aminotransferase (ALT) 13 U/L (16-63) L Alkaline Phosphatase 71 U/L (46-116) Total Protein 6.4 g/dL (6.4-8.2) Albumin 3.0 g/dL (3.4-5.0) L Albumin/Globulin Ratio 0.9 (1.0-1.7) L Current Medications: I have reviewed the current psychotropics carefully including drug interactions. Risk benefit ratio favors no change other than as noted in my dictated progress note. Diagnosis: Problems: (1) Dementia, vascular, with depression (2) Dementia, vascular, with delusions (3) Anxiety disorder (4) Major depressive disorder, recurrent episode (5) Major neurocognitive disorder, due to vascular disease, with behavioral disturbance, mild (6) Mild cognitive disorder (7) Impulse control disorder OTIS SHEPHERD MD Jun 10, 2019 21:59
--- NOTE | 2019-06-10 23:31 | PN ---
DATE: 06/08/2019 PSYCHIATRIC PROGRESS NOTE This late entry 06/08/2019 covers elements not covered in my initial note. SUBJECTIVE: I met with the patient evening of 06/08/2019. Per JACK Peters, the patient slept 5 hours previous night. He is compliant with his medications, fairly quiet, withdrawn, came to the day room. REVIEW OF SYSTEMS: Positive for shoulder pain. No CV, , pulmonary, eye system symptoms on review. MENTAL STATUS EXAMINATION: The patient is oriented to himself and situation. Speech coherent, abstraction fair, computation impaired, language function intact, attention span short. Mood and affect showing improvement, less paranoid. I reviewed his past history at length. He states he saw Dr. Reyes, psychiatrist in [place], [place] for many years with her diagnosis of major depressive disorder. He described her doctor, Dr. Reyes would have residence from the [facility] rotate with him and he would teach them on with the patient there. He had very fond memories of his prior psychiatrist who has since . The patient states he met him on Tuesday. For the first time, Dr. Reyes shook his symmetric his hand, and the next day, he of natural causes. He was reminiscent and quite fondly described all of the above. No suicidal or homicidal ideation. Attention span is fair. Speech coherent. Mood and affect is improved. LABORATORY DATA: Reviewed. IMPRESSION: Major depressive disorder with psychotic features, in partial remission, status post urinary tract infection. Rest unchanged. PLAN: Maintain Klonopin 1 mg at bedtime, Zoloft 150 mg a day, Risperdal 0.5 mg at bedtime. May need to increase Risperdal, but I will consider this depending on his clinical progress. OTIS SHEPHERD MD DR: DEMETRIO/pramod JOB#: [id number] / [id number]
--- NOTE | 2019-06-10 23:57 | PN ---
DATE: 06/09/2019 PSYCHIATRIC PROGRESS NOTE This late entry 06/09/2019 covers elements not covered in my initial note. SUBJECTIVE: I met with the patient evening of 06/09/2019. The patient slept 6-1/4 hours previous night. Overall, he has done better, less anxious, less depressed. No overt psychotic symptoms. He refused to steroids shot for the joints and was fixated on having some pedal edema. We will defer to Dr. Awad. REVIEW OF SYSTEMS: No CV, , pulmonary, eye system symptoms on review. MENTAL STATUS EXAM: Reasonably oriented. Speech is coherent, abstraction fair, computation somewhat impaired, language function intact, attention span fair. Mood and affect still withdrawn, but improved. LABORATORY DATA: Reviewed. IMPRESSION: Unchanged from initial note. PLAN: No change from initial note. MAN Selma SHEPHERD MD DR: DEMETRIO/pramod JOB#: [id number] / [id number]
[2019-06-11] MEDS: ACETAMINOPHEN 325 MG TABLET PO PRN ×3 (05:00→22:17)
[2019-06-11 06:33] VITALS: BP 138/77
[2019-06-11] MEDS: HYDROcodone/APAP 5/325MG 1 TAB TABLET PO SCH ×3 (08:10→19:41)
[2019-06-11] MEDS: PANTOPRAZOLE 40 MG TABLET. PO SCH (08:11)
[2019-06-11] MEDS: POTASSIUM CHLORIDE 20 MEQ TABLET.ER. PO SCH (08:11)
[2019-06-11] MEDS: TAMSULOSIN 0.4 MG CAP.ER.24H. PO SCH (08:11)
[2019-06-11] MEDS: FUROSEMIDE 40 MG TABLET PO SCH (08:11)
[2019-06-11] MEDS: DICYCLOMINE HCL 10 MG CAPSULE PO SCH ×4 (08:11→19:41)
[2019-06-11] MEDS: METOPROLOL SUCC 24HR ER 25 MG TAB.ER.24H. PO SCH (08:12)
[2019-06-11] MEDS: SERTRALINE 50 MG TABLET. PO SCH (08:12)
[2019-06-11 16:11] VITALS: BP 135/77
[2019-06-11] MEDS: FINASTERIDE 5 MG TABLET PO SCH (19:40)
[2019-06-11] MEDS: risperiDONE 0.5 MG TABLET. PO SCH (19:41)
[2019-06-11] MEDS: clonazePAM 1 MG TABLET PO SCH (19:41)
--- NOTE | 2019-06-11 21:27 | PDOC ---
Exam Note: Apolinar Note: Please also refer to the separate dictated note~for this date of service dictated separately.~Patient seen individually. Discussed the patient with Nursing staff reviewed the chart.~Reviewed interim history and current functioning. Reviewed vital signs,~Labs/ Radiology~and current medications noted below. Continue current treatment with the changes noted in the dictated addendum note Assessment: Vital Signs/I&O: Vital Signs Date Time Temp Pulse Resp B/P (MAP) Pulse Ox O2 Delivery O2 Flow Rate FiO2 06/11/19 20:44 98 06/11/19 16:11 98.4 89 20 135/77 (96) 06/10/19 06:07 Room Air I & O 06/10/19 06/10/19 06/11/19 15:00 23:00 07:00 Intake Total 720 ml 240 ml 0 ml Balance 720 ml 240 ml 0 ml Current Medications: Meds: Current Medications Medications (Trade) Dose Ordered Sig/Mikel Route PRN Reason Start Time Stop Time Status Last Admin Dose Admin Furosemide (Lasix) 40 mg DAILY PO 06/11/19 09:00 06/11/19 08:11 Potassium Chloride (Klor-Con) 20 meq DAILYWBKFT PO 06/11/19 08:00 06/11/19 08:11 I have reviewed the current psychotropics carefully including drug interactions. Risk benefit ratio favors no change other than as noted in my dictated progress note. Diagnosis: Problems: (1) Dementia, vascular, with depression (2) Dementia, vascular, with delusions (3) Anxiety disorder (4) Major depressive disorder, recurrent episode (5) Major neurocognitive disorder, due to vascular disease, with behavioral disturbance, mild (6) Mild cognitive disorder (7) Impulse control disorder OTIS SHEPHERD MD Jun 11, 2019 21:27
--- NOTE | 2019-06-12 00:51 | PN ---
DATE: 06/10/2019 PSYCHIATRIC PROGRESS NOTE This late entry 06/10/2019 covers elements not covered in my initial note. SUBJECTIVE: I met with the patient evening of 06/10/2019. Per JACK Mcclure, the patient slept 7-1/4 hours previous night. He has been spending time in the dayroom, less withdrawn. No PRNs given. He does complain of some pain and swelling of his ankles and has been started on Lasix and potassium per Dr. Awad. REVIEW OF SYSTEMS: No CV, , pulmonary, eye system symptoms on review. MENTAL STATUS EXAMINATION: Reasonably oriented. Speech is coherent, has some latency. Abstraction fair, computation impaired, language function intact, attention span short. Mood and affect is improved. Cognitively, he is reasonably intact. LABORATORY DATA: Reviewed. IMPRESSION: Unchanged from initial note. PLAN: No change from initial note. MAN Selma SHEPHERD MD DR: DEMETRIO/pramod JOB#: [id number] / [id number]
[2019-06-12 06:04] VITALS: BP 124/71
[2019-06-12] MEDS: ACETAMINOPHEN 325 MG TABLET PO PRN ×3 (06:38→20:21)
[2019-06-12] MEDS: PANTOPRAZOLE 40 MG TABLET. PO SCH (08:04)
[2019-06-12] MEDS: SERTRALINE 50 MG TABLET. PO SCH (08:04)
[2019-06-12] MEDS: DICYCLOMINE HCL 10 MG CAPSULE PO SCH ×4 (08:04→20:20)
[2019-06-12] MEDS: METOPROLOL SUCC 24HR ER 25 MG TAB.ER.24H. PO SCH (08:04)
[2019-06-12] MEDS: POTASSIUM CHLORIDE 20 MEQ TABLET.ER. PO SCH (08:04)
[2019-06-12] MEDS: HYDROcodone/APAP 5/325MG 1 TAB TABLET PO SCH ×3 (08:05→20:20)
[2019-06-12] MEDS: TAMSULOSIN 0.4 MG CAP.ER.24H. PO SCH (08:05)
[2019-06-12] MEDS: FUROSEMIDE 40 MG TABLET PO SCH (08:05)
[2019-06-12 15:52] VITALS: BP 112/68
[2019-06-12] MEDS: risperiDONE 0.5 MG TABLET. PO SCH (20:20)
[2019-06-12] MEDS: FINASTERIDE 5 MG TABLET PO SCH (20:21)
[2019-06-12] MEDS: clonazePAM 1 MG TABLET PO SCH (20:21)
--- NOTE | 2019-06-12 21:06 | PN ---
DATE: 06/11/2019 PSYCHIATRIC PROGRESS NOTE This late entry 06/11/2018 covers elements not covered in my initial note. SUBJECTIVE: I met with the patient evening of 06/11/2019. Per JACK Morales, the patient slept 6 hours previous night. He has had no sexually inappropriate behaviors. He is pleased that he was started on Lasix along with potassium for his pedal edema and as I met with him in his room, he was quite appreciative of this. REVIEW OF SYSTEMS: Other than the pedal edema, no CV, , pulmonary, eye, ENT system symptoms on review. Reliability fair. MENTAL STATUS EXAM: Reasonably oriented. Speech has some latency, coherent. Abstraction fair, computation impaired, language function intact, attention span short. Mood and affect is improved. Later computation seemed more reasonable. LABORATORY DATA: Reviewed. No suicidal ideation. IMPRESSION: Major depressive disorder with psychotic features, in partial remission; anxiety disorder, unspecified; impulse control disorder. PLAN: I have carefully reviewed the patient's current psychotropics and drug interactions. We will continue Klonopin 1 mg at bedtime, Zoloft 150 mg a day, Risperdal 0.5 mg p.o. at bedtime. Received informed consent. OTIS SHEPHERD MD DR: DEEMTRIO/pramod JOB#: [id number] / [id number]
--- NOTE | 2019-06-12 21:19 | PDOC ---
Exam Note: Apolinar Note: Please also refer to the separate dictated note~for this date of service dictated separately.~Patient seen individually. Discussed the patient with Nursing staff reviewed the chart.~Reviewed interim history and current functioning. Reviewed vital signs,~Labs/ Radiology~and current medications noted below. Continue current treatment with the changes noted in the dictated addendum note Assessment: Vital Signs/I&O: Vital Signs Date Time Temp Pulse Resp B/P (MAP) Pulse Ox O2 Delivery O2 Flow Rate FiO2 06/12/19 20:20 100 06/12/19 15:58 18 Room Air 06/12/19 15:52 98.1 82 112/68 (83) I & O 06/11/19 06/11/19 06/12/19 15:00 23:00 07:00 Intake Total 780 ml 480 ml Balance 780 ml 480 ml Current Medications: I have reviewed the current psychotropics carefully including drug interactions. Risk benefit ratio favors no change other than as noted in my dictated progress note. Diagnosis: Problems: (1) Dementia, vascular, with depression (2) Dementia, vascular, with delusions (3) Anxiety disorder (4) Major depressive disorder, recurrent episode (5) Major neurocognitive disorder, due to vascular disease, with behavioral disturbance, mild (6) Mild cognitive disorder (7) Impulse control disorder OTIS SHEPHERD MD Jun 12, 2019 21:19
[2019-06-13] MEDS: ACETAMINOPHEN 325 MG TABLET PO PRN ×3 (05:11→21:14)
[2019-06-13 05:46] VITALS: BP 129/77
[2019-06-13] MEDS: DICYCLOMINE HCL 10 MG CAPSULE PO SCH ×4 (07:50→21:01)
[2019-06-13] MEDS: TAMSULOSIN 0.4 MG CAP.ER.24H. PO SCH (07:50)
[2019-06-13] MEDS: POTASSIUM CHLORIDE 20 MEQ TABLET.ER. PO SCH (07:50)
[2019-06-13] MEDS: FUROSEMIDE 40 MG TABLET PO SCH (07:50)
[2019-06-13] MEDS: METOPROLOL SUCC 24HR ER 25 MG TAB.ER.24H. PO SCH (07:50)
[2019-06-13] MEDS: PANTOPRAZOLE 40 MG TABLET. PO SCH (07:50)
[2019-06-13] MEDS: SERTRALINE 50 MG TABLET. PO SCH (07:51)
[2019-06-13] MEDS: HYDROcodone/APAP 5/325MG 1 TAB TABLET PO SCH ×5 (07:52→21:12)
[2019-06-13 15:56] VITALS: BP 132/76
[2019-06-13] MEDS: FINASTERIDE 5 MG TABLET PO SCH (21:00)
[2019-06-13] MEDS: clonazePAM 1 MG TABLET PO SCH (21:00)
[2019-06-13] MEDS: risperiDONE 0.5 MG TABLET. PO SCH (21:01)
--- NOTE | 2019-06-13 21:22 | PDOC ---
Exam Note: Apolinar Note: Please also refer to the separate dictated note~for this date of service dictated separately.~Patient seen individually. Discussed the patient with Nursing staff reviewed the chart.~Reviewed interim history and current functioning. Reviewed vital signs,~Labs/ Radiology~and current medications noted below. Continue current treatment with the changes noted in the dictated addendum note Assessment: Vital Signs/I&O: Vital Signs Date Time Temp Pulse Resp B/P (MAP) Pulse Ox O2 Delivery O2 Flow Rate FiO2 06/13/19 21:12 97 06/13/19 15:56 98.2 77 18 132/76 (94) 06/13/19 15:27 Room Air I & O 06/12/19 06/12/19 06/13/19 15:00 23:00 07:00 Intake Total 1080 ml 580 ml Balance 1080 ml 580 ml Current Medications: I have reviewed the current psychotropics carefully including drug interactions. Risk benefit ratio favors no change other than as noted in my dictated progress note. Diagnosis: Problems: (1) Dementia, vascular, with depression (2) Dementia, vascular, with delusions (3) Anxiety disorder (4) Major depressive disorder, recurrent episode (5) Major neurocognitive disorder, due to vascular disease, with behavioral disturbance, mild (6) Mild cognitive disorder (7) Impulse control disorder OTIS SHEPHERD MD Jun 13, 2019 21:22
--- NOTE | 2019-06-13 22:41 | PN ---
DATE: 06/12/2019 PSYCHIATRIC PROGRESS NOTE This late entry of 06/12/2019 covers elements not covered in my initial note. SUBJECTIVE: I met with the patient in the evening of 06/12/2019 in his room at some length. Per JACK Peters, the patient slept reasonably previous night. He has been more hyperverbal previous night, somewhat delusional, upset that his son moved his furniture to the apartment. Somewhat paranoid. He slept 6-3/4 hours previous night, woke up at 4:00 a.m. REVIEW OF SYSTEMS: Positive for pedal edema. No CV, , pulmonary, eye system symptoms on review. MENTAL STATUS EXAM: Reasonably oriented. Speech is coherent, abstraction fair, computation impaired, language function intact, attention span short. Mood and affect is improved. LABORATORY DATA: Reviewed. IMPRESSION: Unchanged from initial note. PLAN: No change from initial note. MAN Selma SHEPHERD MD DR: DEMETRIO/pramod JOB#: [id number] / [id number]
[2019-06-14 06:16] VITALS: BP 129/73
[2019-06-14] MEDS: SERTRALINE 50 MG TABLET. PO SCH (07:38)
[2019-06-14] MEDS: FUROSEMIDE 40 MG TABLET PO SCH (07:39)
[2019-06-14] MEDS: PANTOPRAZOLE 40 MG TABLET. PO SCH (07:39)
[2019-06-14] MEDS: METOPROLOL SUCC 24HR ER 25 MG TAB.ER.24H. PO SCH (07:39)
[2019-06-14] MEDS: DICYCLOMINE HCL 10 MG CAPSULE PO SCH ×4 (07:39→20:13)
[2019-06-14] MEDS: TAMSULOSIN 0.4 MG CAP.ER.24H. PO SCH (07:39)
[2019-06-14] MEDS: ACETAMINOPHEN 325 MG TABLET PO PRN ×2 (07:39→13:45)
[2019-06-14] MEDS: HYDROcodone/APAP 5/325MG 1 TAB TABLET PO SCH ×3 (07:40→20:14)
[2019-06-14] MEDS: POTASSIUM CHLORIDE 20 MEQ TABLET.ER. PO SCH (07:40)
[2019-06-14 16:29] VITALS: BP 132/72
[2019-06-14] MEDS ORDERED: ACETAMINOPHEN 325 MG TABLET PO SCH ×2 (17:15→18:00)
[2019-06-14] MEDS: FINASTERIDE 5 MG TABLET PO SCH (20:13)
[2019-06-14] MEDS: clonazePAM 1 MG TABLET PO SCH (20:13)
[2019-06-14] MEDS: risperiDONE 0.5 MG TABLET. PO SCH (20:13)
[2019-06-14] MEDS: ACETAMINOPHEN 325 MG TABLET PO SCH (20:13)
--- NOTE | 2019-06-14 21:29 | PDOC ---
Exam Note: Apolinar Note: Please also refer to the separate dictated note~for this date of service dictated separately.~Patient seen individually. Discussed the patient with Nursing staff reviewed the chart.~Reviewed interim history and current functioning. Reviewed vital signs,~Labs/ Radiology~and current medications noted below. Continue current treatment with the changes noted in the dictated addendum note Assessment: Vital Signs/I&O: Vital Signs Date Time Temp Pulse Resp B/P (MAP) Pulse Ox O2 Delivery O2 Flow Rate FiO2 06/14/19 16:29 97.6 84 16 132/72 (92) 95 Room Air I & O 06/13/19 06/13/19 06/14/19 15:00 23:00 07:00 Intake Total 720 ml 480 ml Balance 720 ml 480 ml Current Medications: Meds: Current Medications Medications (Trade) Dose Ordered Sig/Mikel Route PRN Reason Start Time Stop Time Status Last Admin Dose Admin Acetaminophen (Tylenol) 650 mg Q6H PO 06/14/19 21:00 06/14/19 20:13 I have reviewed the current psychotropics carefully including drug interactions. Risk benefit ratio favors no change other than as noted in my dictated progress note. Diagnosis: Problems: (1) Dementia, vascular, with depression (2) Dementia, vascular, with delusions (3) Anxiety disorder (4) Major depressive disorder, recurrent episode (5) Major neurocognitive disorder, due to vascular disease, with behavioral disturbance, mild (6) Mild cognitive disorder (7) Impulse control disorder OTIS SHEPHERD MD Jun 14, 2019 21:29
[2019-06-15] MEDS: ACETAMINOPHEN 325 MG TABLET PO SCH ×4 (03:30→20:29)
[2019-06-15 06:28] VITALS: BP 120/74
[2019-06-15] MEDS: DICYCLOMINE HCL 10 MG CAPSULE PO SCH ×4 (08:15→20:28)
[2019-06-15] MEDS: SERTRALINE 50 MG TABLET. PO SCH (08:15)
[2019-06-15] MEDS: PANTOPRAZOLE 40 MG TABLET. PO SCH (08:15)
[2019-06-15] MEDS: POTASSIUM CHLORIDE 20 MEQ TABLET.ER. PO SCH (08:15)
[2019-06-15] MEDS: HYDROcodone/APAP 5/325MG 1 TAB TABLET PO SCH ×3 (08:15→20:29)
[2019-06-15] MEDS: TAMSULOSIN 0.4 MG CAP.ER.24H. PO SCH (08:16)
[2019-06-15] MEDS: METOPROLOL SUCC 24HR ER 25 MG TAB.ER.24H. PO SCH (08:16)
[2019-06-15] MEDS: FUROSEMIDE 40 MG TABLET PO SCH (08:16)
[2019-06-15 16:20] VITALS: BP 148/73
--- NOTE | 2019-06-15 20:20 | PN ---
DATE: 06/13/2019 PSYCHIATRIC PROGRESS NOTE This late entry 06/13/2019 covers elements not covered in my initial note. SUBJECTIVE: I met with the patient evening of 06/13/2019. Per JACK Peters, the patient has been somewhat withdrawn, spends much time in his room and was little agitated previous night. He is somewhat paranoid, believes the son is trying to take his money. Otherwise, social at other times. He was walking in the hallway, in a conversation with one of the other demented patients. REVIEW OF SYSTEMS: Positive for pedal edema, improving with diuretics. No CV, , pulmonary, eye system symptoms on review. Gait unsteady with walker. MENTAL STATUS EXAM: Oriented to himself and situation, other times, more confused. Speech has some latency, coherent. Abstraction fair, computation impaired, language function intact. Mood and affect somewhat withdrawn. LABORATORY DATA: Reviewed. IMPRESSION: Unchanged from initial note. PLAN: No change from initial note. OTIS SHEPHERD MD DR: DEMETRIO/pramod JOB#: [id number] / [id number]
[2019-06-15] MEDS: clonazePAM 0.5 MG TABLET PO SCH (20:28)
[2019-06-15] MEDS: FINASTERIDE 5 MG TABLET PO SCH (20:28)
--- NOTE | 2019-06-15 20:28 | PN ---
DATE: 06/14/2019 PSYCHIATRIC PROGRESS NOTE This late entry 06/14/2019 covers elements not covered in my initial note. SUBJECTIVE: I met with the patient evening of 06/14/2019 and staffed at treatment team meeting with the entire team in the morning. The patient's appetite 50%, sleeping 7-8 hours, withdrawn, irritable at times. At times, he appears psychotic, telling nursing staff that he believes his daughter is hiding in the ceiling, arguing with nursing staff suspicious of his son. REVIEW OF SYSTEMS: Positive for pedal edema. No CV, , pulmonary, eye system symptoms on review. Gait unsteady with walker. MENTAL STATUS EXAM: Oriented to himself and situation. Speech has some latency, coherent. Abstraction fair, computation impaired, language function intact, attention span short. Mood and affect somewhat withdrawn, paranoid at times with short-term memory deficits. Review of the psychological testing done by Dr. Lubin. LABORATORY DATA: Reviewed. IMPRESSION: Unchanged from initial note. PLAN: No change from initial note. OTIS SHEPHERD MD DR: DEMETRIO/pramod JOB#: [id number] / [id number]
[2019-06-15] MEDS: risperiDONE 0.5 MG TABLET. PO SCH (20:29)
--- NOTE | 2019-06-15 22:41 | PDOC ---
Exam Note: Apolinar Note: Please also refer to the separate dictated note~for this date of service dictated separately.~Patient seen individually. Discussed the patient with Nursing staff reviewed the chart.~Reviewed interim history and current functioning. Reviewed vital signs,~Labs/ Radiology~and current medications noted below. Continue current treatment with the changes noted in the dictated addendum note Assessment: Vital Signs/I&O: Vital Signs Date Time Temp Pulse Resp B/P (MAP) Pulse Ox O2 Delivery O2 Flow Rate FiO2 06/15/19 21:29 93 06/15/19 16:20 97.7 80 20 148/73 (98) Room Air I & O 06/14/19 06/14/19 06/15/19 15:00 23:00 07:00 Intake Total 720 ml 360 ml 240 ml Balance 720 ml 360 ml 240 ml Current Medications: Meds: Current Medications Medications (Trade) Dose Ordered Sig/Mikel Route PRN Reason Start Time Stop Time Status Last Admin Dose Admin Clonazepam (KlonoPIN) 0.5 mg HS PO 06/15/19 21:00 06/15/19 20:28 I have reviewed the current psychotropics carefully including drug interactions. Risk benefit ratio favors no change other than as noted in my dictated progress note. Diagnosis: Problems: (1) Dementia, vascular, with depression (2) Dementia, vascular, with delusions (3) Anxiety disorder (4) Major depressive disorder, recurrent episode (5) Major neurocognitive disorder, due to vascular disease, with behavioral disturbance, mild (6) Mild cognitive disorder (7) Impulse control disorder OTIS SHEPHERD MD Jun 15, 2019 22:41
[2019-06-16] MEDS: ACETAMINOPHEN 325 MG TABLET PO SCH ×6 (03:00→23:17)
[2019-06-16 05:38] VITALS: BP 134/76
[2019-06-16] MEDS: POTASSIUM CHLORIDE 20 MEQ TABLET.ER. PO SCH (08:14)
[2019-06-16] MEDS: DICYCLOMINE HCL 10 MG CAPSULE PO SCH ×4 (08:15→20:08)
[2019-06-16] MEDS: TAMSULOSIN 0.4 MG CAP.ER.24H. PO SCH (08:15)
[2019-06-16] MEDS: PANTOPRAZOLE 40 MG TABLET. PO SCH (08:15)
[2019-06-16] MEDS: METOPROLOL SUCC 24HR ER 25 MG TAB.ER.24H. PO SCH (08:15)
[2019-06-16] MEDS: SERTRALINE 50 MG TABLET. PO SCH (08:15)
[2019-06-16] MEDS: HYDROcodone/APAP 5/325MG 1 TAB TABLET PO SCH ×3 (08:15→20:09)
[2019-06-16] MEDS: FUROSEMIDE 40 MG TABLET PO SCH (08:15)
[2019-06-16 15:48] VITALS: BP 124/74
[2019-06-16] MEDS: FINASTERIDE 5 MG TABLET PO SCH (20:08)
[2019-06-16] MEDS: clonazePAM 0.5 MG TABLET PO SCH (20:09)
[2019-06-16] MEDS: risperiDONE 0.5 MG TABLET. PO SCH (20:09)
--- NOTE | 2019-06-16 21:24 | PDOC ---
Exam Note: Apolianr Note: Please also refer to the separate dictated note~for this date of service dictated separately.~Patient seen individually. Discussed the patient with Nursing staff reviewed the chart.~Reviewed interim history and current functioning. Reviewed vital signs,~Labs/ Radiology~and current medications noted below. Continue current treatment with the changes noted in the dictated addendum note Assessment: Vital Signs/I&O: Vital Signs Date Time Temp Pulse Resp B/P (MAP) Pulse Ox O2 Delivery O2 Flow Rate FiO2 06/16/19 21:09 98 06/16/19 15:48 97.7 79 22 124/74 (91) 06/15/19 16:20 Room Air I & O 06/15/19 06/15/19 06/16/19 15:00 23:00 07:00 Intake Total 960 ml 240 ml 120 ml Balance 960 ml 240 ml 120 ml Current Medications: Meds: Current Medications Medications (Trade) Dose Ordered Sig/Mikel Route PRN Reason Start Time Stop Time Status Last Admin Dose Admin Acetaminophen (Tylenol) 650 mg [id number] PO 06/16/19 04:45 06/16/19 18:00 I have reviewed the current psychotropics carefully including drug interactions. Risk benefit ratio favors no change other than as noted in my dictated progress note. Diagnosis: Problems: (1) Dementia, vascular, with depression (2) Dementia, vascular, with delusions (3) Anxiety disorder (4) Major depressive disorder, recurrent episode (5) Major neurocognitive disorder, due to vascular disease, with behavioral disturbance, mild (6) Mild cognitive disorder (7) Impulse control disorder OTIS SHEPHERD MD Jun 16, 2019 21:24
[2019-06-17] MEDS: ACETAMINOPHEN 325 MG TABLET PO SCH ×3 (05:09→17:35)
[2019-06-17 05:46] VITALS: BP 112/64
[2019-06-17 07:03] LABS: BASO % 1 % (0-3); EOS # 0.2 x10^3/uL (0.0-0.7); EOS % 6 % (0-3); HEMOGLOBIN 10.8 g/dL (13.0-17.5); LYMPH # 0.7 x10^3/uL (1.0-4.8); LYMPH % 16 % (24-48); MEAN CORPUSCULAR HEMOGLOBIN 27 pg (25-35); MEAN CORPUSCULAR HGB CONC 33 g/dL (31-37); MEAN CORPUSCULAR VOLUME 82 fL (79-100); MONO # 0.4 x10^3/uL (0.0-1.1); MONO % 9 % (0-9); NEUT # 2.7 x10^3uL (1.8-7.7); NEUT % 68 % (31-73); PLATELET COUNT 128 x10^3/uL (140-400)
[2019-06-17 07:18] LABS: ALBUMIN 3.2 g/dL (3.4-5.0); ALBUMIN/GLOBULIN RATIO 0.9 (1.0-1.7); CREATININE 1.3 mg/dL (0.7-1.3); GFR 53.1; POTASSIUM 3.7 mmol/L (3.5-5.1); TOTAL BILIRUBIN 0.3 mg/dL (0.2-1.0); TOTAL PROTEIN 6.8 g/dL (6.4-8.2)
[2019-06-17] MEDS: TAMSULOSIN 0.4 MG CAP.ER.24H. PO SCH (08:10)
[2019-06-17] MEDS: POTASSIUM CHLORIDE 20 MEQ TABLET.ER. PO SCH (08:10)
[2019-06-17] MEDS: SERTRALINE 50 MG TABLET. PO SCH (08:10)
[2019-06-17] MEDS: DICYCLOMINE HCL 10 MG CAPSULE PO SCH ×4 (08:10→20:05)
[2019-06-17] MEDS: FUROSEMIDE 40 MG TABLET PO SCH (08:10)
[2019-06-17] MEDS: PANTOPRAZOLE 40 MG TABLET. PO SCH (08:10)
[2019-06-17] MEDS: METOPROLOL SUCC 24HR ER 25 MG TAB.ER.24H. PO SCH (08:11)
[2019-06-17] MEDS: HYDROcodone/APAP 5/325MG 1 TAB TABLET PO SCH ×3 (08:11→20:05)
[2019-06-17 08:20] LABS: BACTERIA,URINE 0 /HPF (0-FEW); BILIRUBIN,URINE NEG (NEG); CLARITY,URINE CLEAR; COLOR,URINE YELLOW; GLUCOSE,URINE NEG (NEG); NITRITE,URINE NEG (NEG); SQUAMOUS EPITHELIAL CELL,UR FEW /LPF; UROBILINOGEN,URINE 0.2 mg/dL (0.2 mg/dL); WBC,URINE OCC /HPF (0-4)
[2019-06-17 15:28] VITALS: BP 111/63
[2019-06-17] MEDS: clonazePAM 0.5 MG TABLET PO SCH (20:04)
[2019-06-17] MEDS: FINASTERIDE 5 MG TABLET PO SCH (20:04)
[2019-06-17] MEDS: risperiDONE 0.5 MG TABLET. PO SCH (20:05)
[2019-06-17] MEDS ORDERED: ACETAMINOPHEN 325 MG TABLET PO PRN (20:45)
--- NOTE | 2019-06-17 21:20 | PDOC ---
Exam Note: Apolinar Note: Please also refer to the separate dictated note~for this date of service dictated separately.~Patient seen individually. Discussed the patient with Nursing staff reviewed the chart.~Reviewed interim history and current functioning. Reviewed vital signs,~Labs/ Radiology~and current medications noted below. Continue current treatment with the changes noted in the dictated addendum note Assessment: Vital Signs/I&O: Vital Signs Date Time Temp Pulse Resp B/P (MAP) Pulse Ox O2 Delivery O2 Flow Rate FiO2 06/17/19 15:28 97.4 83 16 111/63 (79) 98 06/15/19 16:20 Room Air I & O 06/16/19 06/16/19 06/17/19 15:00 23:00 07:00 Intake Total 528 ml 360 ml Balance 528 ml 360 ml Labs: Laboratory Tests Test 06/17/19 06:52 06/17/19 07:12 White Blood Count 4.0 x10^3/uL (4.0-11.0) Red Blood Count 4.00 x10^6/uL (4.30-5.70) L Hemoglobin 10.8 g/dL (13.0-17.5) L Hematocrit 33.0 % (39.0-53.0) L Mean Corpuscular Volume 82 fL (79-100) Mean Corpuscular Hemoglobin 27 pg (25-35) Mean Corpuscular Hemoglobin Concent 33 g/dL (31-37) Red Cell Distribution Width 16.0 % (11.5-14.5) H Platelet Count 128 x10^3/uL (140-400) L Neutrophils (%) (Auto) 68 % (31-73) Lymphocytes (%) (Auto) 16 % (24-48) L Monocytes (%) (Auto) 9 % (0-9) Eosinophils (%) (Auto) 6 % (0-3) H Basophils (%) (Auto) 1 % (0-3) Neutrophils # (Auto) 2.7 x10^3uL (1.8-7.7) Lymphocytes # (Auto) 0.7 x10^3/uL (1.0-4.8) L Monocytes # (Auto) 0.4 x10^3/uL (0.0-1.1) Eosinophils # (Auto) 0.2 x10^3/uL (0.0-0.7) Basophils # (Auto) 0.0 x10^3/uL (0.0-0.2) Sodium Level 138 mmol/L (136-145) Potassium Level 3.7 mmol/L (3.5-5.1) Chloride Level 101 mmol/L (98-107) Carbon Dioxide Level 30 mmol/L (21-32) Anion Gap 7 (6-14) Blood Urea Nitrogen 21 mg/dL (8-26) Creatinine 1.3 mg/dL (0.7-1.3) Estimated GFR (Cockcroft-Gault) 53.1 BUN/Creatinine Ratio 16 (6-20) Glucose Level 100 mg/dL (70-99) H Calcium Level 9.0 mg/dL (8.5-10.1) Total Bilirubin 0.3 mg/dL (0.2-1.0) Aspartate Amino Transferase (AST) 16 U/L (15-37) Alanine Aminotransferase (ALT) 17 U/L (16-63) Alkaline Phosphatase 84 U/L (46-116) Total Protein 6.8 g/dL (6.4-8.2) Albumin 3.2 g/dL (3.4-5.0) L Albumin/Globulin Ratio 0.9 (1.0-1.7) L Urine Collection Type Unknown Urine Color Yellow Urine Clarity Clear Urine pH 6.0 Urine Specific [place] 1.010 Urine Protein Neg (NEG-TRACE) Urine Glucose (UA) Neg mg/dL (NEG) Urine Ketones (Stick) Neg mg/dL (NEG) Urine Blood Trace (NEG) Urine Nitrite Neg (NEG) Urine Bilirubin Neg (NEG) Urine Urobilinogen Dipstick 0.2 mg/dL (0.2 mg/dL) Urine Leukocyte Esterase Neg (NEG) Urine RBC 1-2 /HPF (0-2) Urine WBC Occ /HPF (0-4) Urine Squamous Epithelial Cells Few /LPF Urine Bacteria 0 /HPF (0-FEW) Current Medications: I have reviewed the current psychotropics carefully including drug interactions. Risk benefit ratio favors no change other than as noted in my dictated progress note. Diagnosis: Problems: (1) Dementia, vascular, with depression (2) Dementia, vascular, with delusions (3) Anxiety disorder (4) Major depressive disorder, recurrent episode (5) Major neurocognitive disorder, due to vascular disease, with behavioral disturbance, mild (6) Mild cognitive disorder (7) Impulse control disorder OTIS SHEPHERD MD Jun 17, 2019 21:20
--- NOTE | 2019-06-17 22:30 | PN ---
DATE: 06/15/2019 PSYCHIATRIC PROGRESS NOTE This late entry 06/15/2019 covers elements not covered in my initial note. SUBJECTIVE: I met with the patient in the evening. Per Jannette RN, the patient has been somewhat hyper-moravian, making vague statements "you don't want to know about it." He slept 6-1/2 hours previous night. He is talking with some persistence about overly moravian themes, inappropriate to the situation per nursing report. He was quite appropriate nevertheless with me in the evening. REVIEW OF SYSTEMS: Ambulation impaired at times with walker. No CV, , pulmonary, eye system symptoms on review. MENTAL STATUS EXAM: Oriented to himself and situation. Speech has some latency, coherent. Abstraction fair, computation impaired, language function intact. Mood and affect somewhat anxious, labile at times, but improved. LABORATORY DATA: Reviewed. IMPRESSION: Unchanged from initial note. PLAN: No change from initial note. OTIS SHEPHERD MD DR: DEMETRIO/pramod JOB#: [id number] / [id number]
--- NOTE | 2019-06-17 22:30 | PN ---
DATE: 06/16/2019 PSYCHIATRIC PROGRESS NOTE This late entry 06/16/2019 covers the elements not covered in my initial note. SUBJECTIVE: I met with the patient in the evening of 06/16/2019. Per nursing report, the patient slept 5-1/4 hours previous night. He has been fairly appropriate on the unit, redirectable, somewhat somatically preoccupied with pedal edema, but part of this is understandable and being addressed by Dr. Awad. REVIEW OF SYSTEMS: No CV, , pulmonary, eye system symptoms on review. Reliability fair. MENTAL STATUS EXAMINATION: The patient is reasonably oriented to himself and situation. Speech is coherent, at times a little hyperverbal, abstraction fair, computation impaired, language function intact, attention span short. Mood and affect is improved. LABORATORY DATA: Reviewed. IMPRESSION: Unchanged from initial note. Major depressive disorder with psychotic features in partial remission; mild cognitive impairment. Rest unchanged. PLAN: No change from initial note. MAN Selma SHEPHERD MD DR: DEMETRIO/pramod JOB#: [id number] / [id number]
[2019-06-18] MEDS: ACETAMINOPHEN 325 MG TABLET PO SCH ×4 (05:45→16:48)
[2019-06-18 06:03] VITALS: BP 119/68
[2019-06-18] MEDS: SERTRALINE 50 MG TABLET. PO SCH (07:57)
[2019-06-18] MEDS: DICYCLOMINE HCL 10 MG CAPSULE PO SCH ×4 (07:58→20:19)
[2019-06-18] MEDS: FUROSEMIDE 40 MG TABLET PO SCH (07:58)
[2019-06-18] MEDS: METOPROLOL SUCC 24HR ER 25 MG TAB.ER.24H. PO SCH (07:58)
[2019-06-18] MEDS: POTASSIUM CHLORIDE 20 MEQ TABLET.ER. PO SCH (07:58)
[2019-06-18] MEDS: TAMSULOSIN 0.4 MG CAP.ER.24H. PO SCH (07:58)
[2019-06-18] MEDS: PANTOPRAZOLE 40 MG TABLET. PO SCH (07:58)
[2019-06-18] MEDS: HYDROcodone/APAP 5/325MG 1 TAB TABLET PO SCH ×3 (08:02→20:20)
[2019-06-18 16:16] VITALS: BP 113/55
[2019-06-18] MEDS: clonazePAM 0.5 MG TABLET PO SCH (20:19)
[2019-06-18] MEDS: FINASTERIDE 5 MG TABLET PO SCH (20:20)
[2019-06-18] MEDS: risperiDONE 0.5 MG TABLET. PO SCH (20:20)
--- NOTE | 2019-06-18 21:41 | PDOC ---
Exam Note: Apolinar Note: Please also refer to the separate dictated note~for this date of service dictated separately.~Patient seen individually. Discussed the patient with Nursing staff reviewed the chart.~Reviewed interim history and current functioning. Reviewed vital signs,~Labs/ Radiology~and current medications noted below. Continue current treatment with the changes noted in the dictated addendum note Assessment: Vital Signs/I&O: Vital Signs Date Time Temp Pulse Resp B/P (MAP) Pulse Ox O2 Delivery O2 Flow Rate FiO2 06/18/19 21:21 96 06/18/19 16:16 98.1 81 18 113/55 (74) 06/18/19 15:51 Room Air I & O 06/17/19 06/17/19 06/18/19 15:00 23:00 07:00 Intake Total 720 ml 480 ml 120 ml Balance 720 ml 480 ml 120 ml Current Medications: I have reviewed the current psychotropics carefully including drug interactions. Risk benefit ratio favors no change other than as noted in my dictated progress note. Diagnosis: Problems: (1) Dementia, vascular, with depression (2) Dementia, vascular, with delusions (3) Anxiety disorder (4) Major depressive disorder, recurrent episode (5) Major neurocognitive disorder, due to vascular disease, with behavioral disturbance, mild (6) Mild cognitive disorder (7) Impulse control disorder OTIS SHEHPERD MD Jun 18, 2019 21:41
[2019-06-19] MEDS: ACETAMINOPHEN 325 MG TABLET PO SCH ×4 (00:04→16:34)
--- NOTE | 2019-06-19 00:31 | PN ---
DATE: 06/17/2019 PSYCHIATRIC PROGRESS NOTE This late entry 06/17/2019 covers the elements not covered in my initial note. SUBJECTIVE: I met with the patient in the evening of 06/17/2019. Per JACK Mccormack, the patient has done little better. He still complains of pain and is wanting 1 p.r.n. Tylenol in addition to the schedule that he gets. We will go ahead and add this. REVIEW OF SYSTEMS: Positive for some tiredness, met with him in his room at length. Complains of pedal edema, some pain. No CV, , pulmonary, eye system symptoms on review. MENTAL STATUS EXAMINATION: The patient is oriented to himself and situation. Speech coherent, abstraction fair, computation impaired, language function intact, attention span short. Does have some short-term memory deficits. LABORATORY DATA: Reviewed. IMPRESSION: Unchanged from initial note. PLAN: No change from initial note other than above. OTIS SHEPHERD MD DR: DEMETRIO/pramod JOB#: [id number] / [id number]
[2019-06-19 06:26] VITALS: BP 108/62
[2019-06-19] MEDS: SERTRALINE 50 MG TABLET. PO SCH (07:54)
[2019-06-19] MEDS: FUROSEMIDE 40 MG TABLET PO SCH (07:54)
[2019-06-19] MEDS: TAMSULOSIN 0.4 MG CAP.ER.24H. PO SCH (07:55)
[2019-06-19] MEDS: METOPROLOL SUCC 24HR ER 25 MG TAB.ER.24H. PO SCH (07:55)
[2019-06-19] MEDS: DICYCLOMINE HCL 10 MG CAPSULE PO SCH ×4 (07:55→19:44)
[2019-06-19] MEDS: POTASSIUM CHLORIDE 20 MEQ TABLET.ER. PO SCH (07:55)
[2019-06-19] MEDS: PANTOPRAZOLE 40 MG TABLET. PO SCH (07:55)
[2019-06-19] MEDS: HYDROcodone/APAP 5/325MG 1 TAB TABLET PO SCH ×3 (07:56→19:43)
[2019-06-19 15:46] VITALS: BP 134/85
[2019-06-19] MEDS: FINASTERIDE 5 MG TABLET PO SCH (19:42)
[2019-06-19] MEDS: risperiDONE 0.5 MG TABLET. PO SCH (19:43)
[2019-06-19] MEDS: clonazePAM 0.5 MG TABLET PO SCH (19:44)
--- NOTE | 2019-06-19 21:22 | PDOC ---
Exam Note: Apolinar Note: Please also refer to the separate dictated note~for this date of service dictated separately.~Patient seen individually. Discussed the patient with Nursing staff reviewed the chart.~Reviewed interim history and current functioning. Reviewed vital signs,~Labs/ Radiology~and current medications noted below. Continue current treatment with the changes noted in the dictated addendum note Assessment: Vital Signs/I&O: Vital Signs Date Time Temp Pulse Resp B/P (MAP) Pulse Ox O2 Delivery O2 Flow Rate FiO2 06/19/19 15:46 98.2 110 20 134/85 (101) 98 06/19/19 15:35 Room Air I & O 06/18/19 06/18/19 06/19/19 15:00 23:00 07:00 Intake Total 840 ml 360 ml 120 ml Balance 840 ml 360 ml 120 ml Current Medications: Meds: Current Medications Medications (Trade) Dose Ordered Sig/Mikel Route PRN Reason Start Time Stop Time Status Last Admin Dose Admin Risperidone (RisperDAL) 0.75 mg HS PO 06/19/19 21:00 06/19/19 19:43 I have reviewed the current psychotropics carefully including drug interactions. Risk benefit ratio favors no change other than as noted in my dictated progress note. Diagnosis: Problems: (1) Dementia, vascular, with depression (2) Dementia, vascular, with delusions (3) Anxiety disorder (4) Major depressive disorder, recurrent episode (5) Major neurocognitive disorder, due to vascular disease, with behavioral disturbance, mild (6) Mild cognitive disorder (7) Impulse control disorder OTIS SHEPHERD MD Jun 19, 2019 21:22
[2019-06-20] MEDS: ACETAMINOPHEN 325 MG TABLET PO SCH ×5 (00:27→23:42)
--- NOTE | 2019-06-20 01:29 | PN ---
DATE: 06/18/2019 PSYCHIATRIC PROGRESS NOTE This late entry 06/18/2019 covers elements not covered in my initial note. SUBJECTIVE: I met with the patient evening of 06/18/2019. The patient slept 7-1/2 hours previous night per JACK Ellis. He has been somewhat anxious, paranoid, stating that the FBI was talking to the nursing staff via the radio. He is intermittently agitated, demanding and needy, but redirectable. REVIEW OF SYSTEMS: No CV, , pulmonary, eye, ENT system symptoms on review, does complain of pedal edema, impaired ambulation with walker. MENTAL STATUS EXAM: Oriented to himself and situation. Speech is coherent, abstraction fair, computation impaired, short term memory is impaired. Language function intact. Mood and affect remain somewhat anxious, labile. I have reviewed the psychological testing completed by Dr. Lubin reflective of some short-term memory deficits and his mood disorder. LABORATORY DATA: Reviewed. IMPRESSION: Major depressive disorder with psychotic features, mild cognitive impairment versus early major neurocognitive disorder, Alzheimer, vascular with delusion, depression. PLAN: Increase Risperdal to 0.75 mg p.o. at bedtime. Maintain Zoloft 150 mg a day, Klonopin 0.5 mg at bedtime. Adjust further as clinically indicated. MAN Selma SHEPHERD MD DR: DEMETRIO/pramod JOB#: [id number] / [id number]
[2019-06-20 06:05] VITALS: BP 112/69
[2019-06-20] MEDS: TAMSULOSIN 0.4 MG CAP.ER.24H. PO SCH (07:53)
[2019-06-20] MEDS: DICYCLOMINE HCL 10 MG CAPSULE PO SCH ×4 (07:54→20:07)
[2019-06-20] MEDS: PANTOPRAZOLE 40 MG TABLET. PO SCH (07:54)
[2019-06-20] MEDS: METOPROLOL SUCC 24HR ER 25 MG TAB.ER.24H. PO SCH (07:54)
[2019-06-20] MEDS: SERTRALINE 50 MG TABLET. PO SCH (07:54)
[2019-06-20] MEDS: FUROSEMIDE 40 MG TABLET PO SCH (07:54)
[2019-06-20] MEDS: POTASSIUM CHLORIDE 20 MEQ TABLET.ER. PO SCH (07:55)
[2019-06-20] MEDS: HYDROcodone/APAP 5/325MG 1 TAB TABLET PO SCH ×3 (07:58→20:07)
[2019-06-20 15:56] VITALS: BP 118/70
[2019-06-20] MEDS: FINASTERIDE 5 MG TABLET PO SCH (20:06)
[2019-06-20] MEDS: clonazePAM 0.5 MG TABLET PO SCH (20:06)
[2019-06-20] MEDS: risperiDONE 0.5 MG TABLET. PO SCH (20:07)
--- NOTE | 2019-06-20 21:50 | PDOC ---
Exam Note: Apolinar Note: Please also refer to the separate dictated note~for this date of service dictated separately.~Patient seen individually. Discussed the patient with Nursing staff reviewed the chart.~Reviewed interim history and current functioning. Reviewed vital signs,~Labs/ Radiology~and current medications noted below. Continue current treatment with the changes noted in the dictated addendum note Assessment: Vital Signs/I&O: Vital Signs Date Time Temp Pulse Resp B/P (MAP) Pulse Ox O2 Delivery O2 Flow Rate FiO2 06/20/19 21:07 98 06/20/19 16:00 16 Room Air 06/20/19 15:56 98.5 75 118/70 (86) I & O 06/19/19 06/19/19 06/20/19 15:00 23:00 07:00 Intake Total 960 ml 240 ml 240 ml Balance 960 ml 240 ml 240 ml Current Medications: I have reviewed the current psychotropics carefully including drug interactions. Risk benefit ratio favors no change other than as noted in my dictated progress note. Diagnosis: Problems: (1) Dementia, vascular, with depression (2) Dementia, vascular, with delusions (3) Anxiety disorder (4) Major depressive disorder, recurrent episode (5) Major neurocognitive disorder, due to vascular disease, with behavioral disturbance, mild (6) Mild cognitive disorder (7) Impulse control disorder OTIS SHEPHERD MD Jun 20, 2019 21:50
--- NOTE | 2019-06-20 23:27 | PN ---
DATE: 06/19/2019 PSYCHIATRIC PROGRESS NOTE This late entry 06/19/2019 covers the elements not covered in my initial note. SUBJECTIVE: I met with the patient in the evening of 06/19/2019. Per JACK Peters, the patient slept 5-1/2 hours previous night. Later slept 6 hours total on recap. He was quite paranoid, psychotic, telling nursing staff that there was radiation and there were trackers and the red light in the smoke detector. Quite paranoid. He felt the hospital antenna was an FBI dish tracking people. FBI was talking to nursing staff via the radio. REVIEW OF SYSTEMS: Positive for pedal edema. No CV, , pulmonary, eye system symptoms on review. MENTAL STATUS EXAM: I met with him and at length in his room. Oriented to himself and situation. Speech is coherent, has some latency. Abstraction fair, computation impaired, language function intact. He appears quite paranoid, suspicious. LABORATORY DATA: Reviewed. IMPRESSION: Major depressive disorder with psychotic features; anxiety disorder, unspecified; mild cognitive impairment. PLAN: Increase Risperdal from 0.5 mg at bedtime to 0.75 mg at bedtime. Maintain Zoloft 150 mg a day, Klonopin 0.5 mg at bedtime. Rest unchanged for now. OTIS SHEPHERD MD DR: DEMETRIO/pramod JOB#: [id number] / [id number]
[2019-06-21] MEDS: ACETAMINOPHEN 325 MG TABLET PO SCH ×3 (05:24→16:53)
[2019-06-21 06:31] VITALS: BP 106/67
[2019-06-21] MEDS: DICYCLOMINE HCL 10 MG CAPSULE PO SCH ×4 (07:49→20:13)
[2019-06-21] MEDS: HYDROcodone/APAP 5/325MG 1 TAB TABLET PO SCH ×3 (07:50→20:14)
[2019-06-21] MEDS: METOPROLOL SUCC 24HR ER 25 MG TAB.ER.24H. PO SCH (07:50)
[2019-06-21] MEDS: PANTOPRAZOLE 40 MG TABLET. PO SCH (07:51)
[2019-06-21] MEDS: SERTRALINE 50 MG TABLET. PO SCH (07:51)
[2019-06-21] MEDS: POTASSIUM CHLORIDE 20 MEQ TABLET.ER. PO SCH (07:51)
[2019-06-21] MEDS: TAMSULOSIN 0.4 MG CAP.ER.24H. PO SCH (07:51)
[2019-06-21] MEDS: FUROSEMIDE 40 MG TABLET PO SCH (07:51)
[2019-06-21 16:20] VITALS: BP 138/77
--- NOTE | 2019-06-21 17:05 | RAD ---
Whole body bone scan History: Upper back and neck pain for 3 weeks. History of right arm fracture 5 years ago and right ankle fracture 4 years ago. Comparison: Right shoulder x-rays of 06/01/2019 Procedure: 26.0 mCI of Tc 99m MDP was injected intravenously and delayed scintigraphic images were obtained of the skeletal system. Findings: There is rightward convexity scoliotic curvature of the upper thoracic spine and focal uptake in the mid thoracic spine at the approximate T6 level. Focal uptake in the right lower lumbar spine at the approximate L4 pedicle and to a lesser extent, the left L5 pedicle. Otherwise uptake is pattern typical of degenerative change in the knees, ankles, wrists, elbows and shoulders are noted. Uptake in the nasopharynx is also evident, likely physiologic. Focal uptake in the anterior left rib is identified on the lateral view. Impression: 1. There is focal uptake in the mid thoracic spine that could correlate with the patient's complaints of upper back pain over the past several weeks. Correlation with cross-sectional imaging either with CT or MRI of the thoracic spine could be helpful in more detailed assessment. 2. There are additional foci of uptake in the ribs and lumbar spine of uncertain clinical relevance or significance. These could be further evaluated if clinically warranted with CT if clinically warranted. Currently, I favor they represent a healing fracture and degenerative change, respectively. Electronically signed by: Carlos Enrique Molina MD (06/21/2019 5:02 PM) [id number]
[2019-06-21] MEDS: clonazePAM 0.5 MG TABLET PO SCH (20:13)
[2019-06-21] MEDS: FINASTERIDE 5 MG TABLET PO SCH (20:13)
[2019-06-21] MEDS: risperiDONE 0.5 MG TABLET. PO SCH (20:14)
--- NOTE | 2019-06-21 21:30 | PDOC ---
Exam Note: Apolinar Note: Please also refer to the separate dictated note~for this date of service dictated separately.~Patient seen individually. Discussed the patient with Nursing staff reviewed the chart.~Reviewed interim history and current functioning. Reviewed vital signs,~Labs/ Radiology~and current medications noted below. Continue current treatment with the changes noted in the dictated addendum note Assessment: Vital Signs/I&O: Vital Signs Date Time Temp Pulse Resp B/P (MAP) Pulse Ox O2 Delivery O2 Flow Rate FiO2 06/21/19 20:14 100 06/21/19 16:55 18 Room Air 06/21/19 16:20 97.5 82 138/77 (97) I & O 06/20/19 06/20/19 06/21/19 14:59 22:59 06:59 Intake Total 720 ml 360 ml 240 ml Balance 720 ml 360 ml 240 ml Labs: Laboratory Tests Test 06/21/19 06:53 Prostate Specific Antigen 1.43 ng/ml (0.00-4.00) Current Medications: I have reviewed the current psychotropics carefully including drug interactions. Risk benefit ratio favors no change other than as noted in my dictated progress note. Diagnosis: Problems: (1) Dementia, vascular, with depression (2) Dementia, vascular, with delusions (3) Anxiety disorder (4) Major depressive disorder, recurrent episode (5) Major neurocognitive disorder, due to vascular disease, with behavioral disturbance, mild (6) Mild cognitive disorder (7) Impulse control disorder OTIS SHEPHERD MD Jun 21, 2019 21:30
--- NOTE | 2019-06-21 23:15 | PN ---
DATE: 06/20/2019 PSYCHIATRIC PROGRESS NOTE This late entry 06/20/2019 covers the elements not covered in my initial note. SUBJECTIVE: Per Fran RN, the patient slept 5-1/2 hours previous night. He was somewhat obsessed about another patient on the unit, who is confused. He is obsessing also about the reason why there was a fire drill at a mealtime. He was talking about beam from a light giving him messages from outside, somewhat paranoid, but denied this as I addressed this with him in the evening. REVIEW OF SYSTEMS: Positive for pedal edema. Complains of pain in his upper back, will defer to Dr. Awad. No CV, , pulmonary, eye system symptoms on review. MENTAL STATUS EXAM: Oriented to himself and situation. Speech is coherent, has some latency. Abstraction fair, computation impaired, language function intact, attention span short. Mood and affect, lability is improved. LABORATORY DATA: Reviewed. IMPRESSION: Unchanged from initial note. PLAN: No change from initial note. MAN Selma SHEPHERD MD DR: DEMETRIO/pramod JOB#: [id number] / [id number]
[2019-06-22] MEDS: ACETAMINOPHEN 325 MG TABLET PO SCH ×5 (00:01→23:58)
[2019-06-22 06:24] VITALS: BP 122/68
[2019-06-22] MEDS: TAMSULOSIN 0.4 MG CAP.ER.24H. PO SCH (08:10)
[2019-06-22] MEDS: FUROSEMIDE 40 MG TABLET PO SCH (08:10)
[2019-06-22] MEDS: PANTOPRAZOLE 40 MG TABLET. PO SCH (08:10)
[2019-06-22] MEDS: DICYCLOMINE HCL 10 MG CAPSULE PO SCH ×4 (08:10→20:03)
[2019-06-22] MEDS: METOPROLOL SUCC 24HR ER 25 MG TAB.ER.24H. PO SCH (08:10)
[2019-06-22] MEDS: POTASSIUM CHLORIDE 20 MEQ TABLET.ER. PO SCH (08:11)
[2019-06-22] MEDS: SERTRALINE 50 MG TABLET. PO SCH (08:11)
[2019-06-22] MEDS: HYDROcodone/APAP 5/325MG 1 TAB TABLET PO SCH ×3 (08:11→20:02)
--- NOTE | 2019-06-22 13:29 | RAD ---
Examination: CT THORACIC SPINE WO CONTRAST History: Back pain, abnormal findings on bone scan Comparison/Correlation: Whole body bone scan 06/21/2019 Findings: Axial images of the thoracic spine were obtained. Sagittal and coronal reformatted images were provided. At the T6 vertebral body, there is patchy sclerotic process. Compression of the T6 vertebral body is noted with superior endplate deformity. Mild vertebral body height loss at T7 and also is present. Concentric disc bulge with calcification osteophyte complex at T8-9 is present. Slight effacement of the thecal sac at this level is present. T12 vertebral body height loss is also evident and a less than 50 percent. Alignment of the thoracic spine is within normal limits. Neural foramina are patent. Exaggerated kyphosis of the upper thoracic spine noted. Left anterior descending coronary arterial calcification is present. Tracheobronchial wall calcification is present. Partially visualized lung bases are remarkable. Calcific involvement of the main renal artery origins is partially seen. Small hiatal hernia is present. Impression: Patchy sclerosis involving the T6 vertebral body is present. It is of indeterminate significance. Slight vertebral body compression deformity is present. No bony destructive findings. Correlate with he prior exams if available to assess stability. Consider MRI of the thoracic spine without and with contrast available for further evaluation. T7 and T12 vertebral body compression fractures also are present and likely chronic. Hiatal hernia. PQRS Compliance Statement: One or more of the following individualized dose reduction techniques were utilized for this examination: 1. Automated exposure control 2. Adjustment of the mA and/or kV according to patient size 3. Use of iterative reconstruction technique Electronically signed by: Zach Cordova MD (06/22/2019 1:27 PM) [facility]
[2019-06-22 15:54] VITALS: BP 100/66
[2019-06-22] MEDS: clonazePAM 0.5 MG TABLET PO SCH (20:02)
[2019-06-22] MEDS: FINASTERIDE 5 MG TABLET PO SCH (20:02)
[2019-06-22] MEDS: risperiDONE 0.5 MG TABLET. PO SCH (20:03)
--- NOTE | 2019-06-22 20:38 | PN ---
DATE: 06/21/2019 PSYCHIATRIC PROGRESS NOTE This late entry 06/21/2019 covers elements not covered in my initial note. SUBJECTIVE: I met with the patient in the evening. Per JACK Peters, the patient slept 8-1/4 hours previous night. He has not been talking about communication system communicating with the FBI and less paranoid. He does complain of pain in his upper back. Dr. Awad is working this up given his history of malignancy. He is having a bone scan in addition to his x-rays. REVIEW OF SYSTEMS: Otherwise, no CV, , pulmonary, eye system symptoms on review. He ambulates with a walker. MENTAL STATUS EXAM: Oriented to himself and situation. Speech has some latency, coherent. Abstraction fair, computation impaired, language function intact, attention span short. Mood and affect somewhat withdrawn. I met with him in his room in the evening. LABORATORY DATA: Reviewed. IMPRESSION: Unchanged from initial note. PLAN: No change from initial note. MAN Selma SHEPHERD MD DR: DEMETRIO/pramod JOB#: [id number] / [id number]
--- NOTE | 2019-06-22 21:26 | PDOC ---
Exam Note: Apolinar Note: Please also refer to the separate dictated note~for this date of service dictated separately.~Patient seen individually. Discussed the patient with Nursing staff reviewed the chart.~Reviewed interim history and current functioning. Reviewed vital signs,~Labs/ Radiology~and current medications noted below. Continue current treatment with the changes noted in the dictated addendum note Assessment: Vital Signs/I&O: Vital Signs Date Time Temp Pulse Resp B/P (MAP) Pulse Ox O2 Delivery O2 Flow Rate FiO2 06/22/19 15:54 98.4 99 20 100/66 (77) 98 06/21/19 16:55 Room Air I & O 06/21/19 06/21/19 06/22/19 15:00 23:00 07:00 Intake Total 1080 ml 480 ml 240 ml Balance 1080 ml 480 ml 240 ml Current Medications: I have reviewed the current psychotropics carefully including drug interactions. Risk benefit ratio favors no change other than as noted in my dictated progress note. Diagnosis: Problems: (1) Dementia, vascular, with depression (2) Dementia, vascular, with delusions (3) Anxiety disorder (4) Major depressive disorder, recurrent episode (5) Major neurocognitive disorder, due to vascular disease, with behavioral disturbance, mild (6) Mild cognitive disorder (7) Impulse control disorder OTIS SHEPHERD MD Jun 22, 2019 21:26
[2019-06-23] MEDS: ACETAMINOPHEN 325 MG TABLET PO SCH ×3 (05:51→17:12)
[2019-06-23 06:10] VITALS: BP 134/73
[2019-06-23] MEDS: FUROSEMIDE 40 MG TABLET PO SCH (08:13)
[2019-06-23] MEDS: POTASSIUM CHLORIDE 20 MEQ TABLET.ER. PO SCH (08:13)
[2019-06-23] MEDS: HYDROcodone/APAP 5/325MG 1 TAB TABLET PO SCH ×3 (08:14→21:17)
[2019-06-23] MEDS: PANTOPRAZOLE 40 MG TABLET. PO SCH (08:14)
[2019-06-23] MEDS: METOPROLOL SUCC 24HR ER 25 MG TAB.ER.24H. PO SCH (08:14)
[2019-06-23] MEDS: DICYCLOMINE HCL 10 MG CAPSULE PO SCH ×4 (08:14→21:16)
[2019-06-23] MEDS: TAMSULOSIN 0.4 MG CAP.ER.24H. PO SCH (08:15)
[2019-06-23] MEDS: SERTRALINE 50 MG TABLET. PO SCH (08:15)
[2019-06-23 16:08] VITALS: BP 116/72
[2019-06-23] MEDS: clonazePAM 0.5 MG TABLET PO SCH (21:16)
[2019-06-23] MEDS: FINASTERIDE 5 MG TABLET PO SCH (21:17)
[2019-06-23] MEDS: risperiDONE 0.5 MG TABLET. PO SCH (21:17)
--- NOTE | 2019-06-23 22:08 | PDOC ---
Exam Note: Apolinar Note: Please also refer to the separate dictated note~for this date of service dictated separately.~Patient seen individually. Discussed the patient with Nursing staff reviewed the chart.~Reviewed interim history and current functioning. Reviewed vital signs,~Labs/ Radiology~and current medications noted below. Continue current treatment with the changes noted in the dictated addendum note Assessment: Vital Signs/I&O: Vital Signs Date Time Temp Pulse Resp B/P (MAP) Pulse Ox O2 Delivery O2 Flow Rate FiO2 06/23/19 16:08 97.4 84 20 116/72 (87) 96 06/21/19 16:55 Room Air I & O 06/22/19 06/22/19 06/23/19 14:59 22:59 06:59 Intake Total 720 ml 240 ml 100 ml Balance 720 ml 240 ml 100 ml Current Medications: I have reviewed the current psychotropics carefully including drug interactions. Risk benefit ratio favors no change other than as noted in my dictated progress note. 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
[2019-06-24] MEDS: ACETAMINOPHEN 325 MG TABLET PO SCH ×4 (05:12→17:24)
[2019-06-24 06:33] VITALS: BP 129/74
[2019-06-24] MEDS: PANTOPRAZOLE 40 MG TABLET. PO SCH (08:09)
[2019-06-24] MEDS: DICYCLOMINE HCL 10 MG CAPSULE PO SCH ×4 (08:09→19:59)
[2019-06-24] MEDS: POTASSIUM CHLORIDE 20 MEQ TABLET.ER. PO SCH (08:09)
[2019-06-24] MEDS: TAMSULOSIN 0.4 MG CAP.ER.24H. PO SCH (08:09)
[2019-06-24] MEDS: SERTRALINE 50 MG TABLET. PO SCH (08:10)
[2019-06-24] MEDS: METOPROLOL SUCC 24HR ER 25 MG TAB.ER.24H. PO SCH (08:10)
[2019-06-24] MEDS: FUROSEMIDE 40 MG TABLET PO SCH (08:10)
[2019-06-24] MEDS: HYDROcodone/APAP 5/325MG 1 TAB TABLET PO SCH ×3 (08:10→19:59)
[2019-06-24] MEDS ORDERED: ACET325T21 PO ×2 (15:34→15:36)
[2019-06-24] MEDS ORDERED: FURO40TA4 PO (15:40)
[2019-06-24] MEDS ORDERED: MAG355OR12 PO (15:43)
[2019-06-24] MEDS ORDERED: MAGN24003 PO (15:45)
[2019-06-24] MEDS ORDERED: METH28OI2 TP (15:48)
[2019-06-24] MEDS ORDERED: PANT40TA5 PO (15:50)
[2019-06-24] MEDS ORDERED: POTA20TA4 PO (15:52)
[2019-06-24] MEDS ORDERED: METH40VI IJ (15:54)
[2019-06-24] MEDS ORDERED: RISP0.5T3 PO (15:55)
[2019-06-24 16:04] VITALS: BP 112/64
[2019-06-24] MEDS: risperiDONE 0.5 MG TABLET. PO SCH (19:58)
[2019-06-24] MEDS: clonazePAM 0.5 MG TABLET PO SCH (19:58)
[2019-06-24] MEDS: FINASTERIDE 5 MG TABLET PO SCH (19:58)
--- NOTE | 2019-06-24 21:31 | PN ---
DATE: 06/23/2019 PSYCHIATRIC PROGRESS NOTE. This late entry of 06/23/2019 covers the elements not covered in my initial note. SUBJECTIVE: I met with the patient in the evening of 06/23/2019. Per JACK Mccormack, the patient slept 4-1/4 hours previous night. I met with him in his room. He is fixated on being diagnosed with osteoporosis and talked about how various family members had a painful from this and he refused to take OxyContin that his sister had to take at the end. Refused to take shower at times, but otherwise cooperative. REVIEW OF SYSTEMS: No CV, , pulmonary, eye system symptoms on review. MENTAL STATUS EXAM: Reasonably oriented. Speech is coherent, rapid at times. Abstraction fair, computation impaired, language function intact. Mood and affect, generally improved. LABORATORY DATA: Reviewed. IMPRESSION: Unchanged from initial note. PLAN: No change from initial note. MAN [place] SHEPHERD MD DR: DEMETRIO/pramod JOB#: [id number] / [id number]
--- NOTE | 2019-06-24 21:32 | PN ---
DATE: 06/22/2019 PSYCHIATRIC PROGRESS NOTE This late entry 06/22/2019 covers elements not covered in my initial note. SUBJECTIVE: I met with the patient in the evening. The patient was also staffed at a treatment team meeting with the entire team earlier in the day. Appetite 85%, sleeping average 6 hours, slept 5 hours previous night. Somewhat withdrawn to his room which is where I met with him in the evening. He has been compliant with treatment, somewhat delusional with a plan to transition to [facility] on Tuesday. On the was the last time he voiced any paranoia, delusions, felt to be in light was entering his room for ulterior motives of someone else. REVIEW OF SYSTEMS: Positive for some pedal edema. No CV, , pulmonary, eye, ENT system symptoms on review. MENTAL STATUS EXAM: Oriented to himself and situation. Speech is coherent, abstraction fair, computation impaired, language function intact. Mood and affect somewhat withdrawn. No suicidal or homicidal ideation. LABORATORY DATA: Reviewed. IMPRESSION: Unchanged from initial note. PLAN: No change from initial note. MAN [place] SHEPHERD MD DR: DEMETRIO/pramod JOB#: [id number] / [id number]
--- NOTE | 2019-06-24 21:45 | PDOC ---
Exam Note: Apolinar Note: Please also refer to the separate dictated note~for this date of service dictated separately.~Patient seen individually. Discussed the patient with Nursing staff reviewed the chart.~Reviewed interim history and current functioning. Reviewed vital signs,~Labs/ Radiology~and current medications noted below. Continue current treatment with the changes noted in the dictated addendum note Assessment: Vital Signs/I&O: Vital Signs Date Time Temp Pulse Resp B/P (MAP) Pulse Ox O2 Delivery O2 Flow Rate FiO2 06/24/19 16:04 98.3 94 16 112/64 (80) 100 06/24/19 14:29 Room Air I & O 06/23/19 06/23/19 06/24/19 15:00 23:00 07:00 Intake Total 720 ml 600 ml Balance 720 ml 600 ml Current Medications: I have reviewed the current psychotropics carefully including drug interactions. Risk benefit ratio favors no change other than as noted in my dictated progress note. Diagnosis: Problems: (1) Dementia, vascular, with depression (2) Dementia, vascular, with delusions (3) Anxiety disorder (4) Major depressive disorder, recurrent episode (5) Major neurocognitive disorder, due to vascular disease, with behavioral disturbance, mild (6) Mild cognitive disorder (7) Impulse control disorder OTIS SHEPHERD MD Jun 24, 2019 21:45
[2019-06-25] MEDS ORDERED: HYDR-2155 PO (00:27)
[2019-06-25] MEDS: ACETAMINOPHEN 325 MG TABLET PO SCH ×2 (05:43)
[2019-06-25 05:53] VITALS: BP 151/80
[2019-06-25 06:34] LABS: BASO % 1 % (0-3); EOS # 0.2 x10^3/uL (0.0-0.7); EOS % 5 % (0-3); HEMOGLOBIN 10.7 g/dL (13.0-17.5); LYMPH # 0.8 x10^3/uL (1.0-4.8); LYMPH % 20 % (24-48); MEAN CORPUSCULAR HEMOGLOBIN 27 pg (25-35); MEAN CORPUSCULAR HGB CONC 32 g/dL (31-37); MEAN CORPUSCULAR VOLUME 83 fL (79-100); MONO # 0.4 x10^3/uL (0.0-1.1); MONO % 9 % (0-9); NEUT # 2.7 x10^3uL (1.8-7.7); NEUT % 67 % (31-73); PLATELET COUNT 197 x10^3/uL (140-400); RED BLOOD COUNT 3.99 x10^6/uL (4.30-5.70); RED CELL DISTRIBUTION WIDTH 15.8 % (11.5-14.5); WHITE BLOOD COUNT 4.1 x10^3/uL (4.0-11.0)
[2019-06-25 06:46] LABS: ALBUMIN 3.1 g/dL (3.4-5.0); ALBUMIN/GLOBULIN RATIO 0.8 (1.0-1.7); CALCIUM 9.3 mg/dL (8.5-10.1); CREATININE 1.1 mg/dL (0.7-1.3); GFR 64.4; POTASSIUM 3.8 mmol/L (3.5-5.1); TOTAL BILIRUBIN 0.2 mg/dL (0.2-1.0); TOTAL PROTEIN 6.8 g/dL (6.4-8.2)
[2019-06-25] MEDS: DICYCLOMINE HCL 10 MG CAPSULE PO SCH (08:08)
[2019-06-25] MEDS: TAMSULOSIN 0.4 MG CAP.ER.24H. PO SCH (08:08)
[2019-06-25] MEDS: PANTOPRAZOLE 40 MG TABLET. PO SCH (08:08)
[2019-06-25] MEDS: HYDROcodone/APAP 5/325MG 1 TAB TABLET PO SCH (08:08)
[2019-06-25] MEDS: SERTRALINE 50 MG TABLET. PO SCH (08:09)
[2019-06-25] MEDS: FUROSEMIDE 40 MG TABLET PO SCH (08:09)
[2019-06-25] MEDS: POTASSIUM CHLORIDE 20 MEQ TABLET.ER. PO SCH (08:09)
[2019-06-25 08:10] VITALS: BP 151/80
[2019-06-25] MEDS: METOPROLOL SUCC 24HR ER 25 MG TAB.ER.24H. PO SCH (08:10)
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
--- NOTE | 2019-06-25 21:14 | PDOC ---
Exam Note: Apolinar Note: Please also refer to the separate dictated note~for this date of service dictated separately.~Patient seen individually. Discussed the patient with Nursing staff reviewed the chart.~Reviewed interim history and current functioning. Reviewed vital signs,~Labs/ Radiology~and current medications noted below. Continue current treatment with the changes noted in the dictated addendum note Assessment: Vital Signs/I&O: Vital Signs Date Time Temp Pulse Resp B/P (MAP) Pulse Ox O2 Delivery O2 Flow Rate FiO2 06/25/19 09:34 16 95 Room Air 06/25/19 08:10 81 151/80 06/25/19 05:53 96.7 I & O 06/24/19 06/24/19 06/25/19 15:00 23:00 07:00 Intake Total 600 ml 480 ml 240 ml Balance 600 ml 480 ml 240 ml Labs: Laboratory Tests Test 06/25/19 06:05 White Blood Count 4.1 x10^3/uL (4.0-11.0) Red Blood Count 3.99 x10^6/uL (4.30-5.70) L Hemoglobin 10.7 g/dL (13.0-17.5) L Hematocrit 33.0 % (39.0-53.0) L Mean Corpuscular Volume 83 fL (79-100) Mean Corpuscular Hemoglobin 27 pg (25-35) Mean Corpuscular Hemoglobin Concent 32 g/dL (31-37) Red Cell Distribution Width 15.8 % (11.5-14.5) H Platelet Count 197 x10^3/uL (140-400) Neutrophils (%) (Auto) 67 % (31-73) Lymphocytes (%) (Auto) 20 % (24-48) L Monocytes (%) (Auto) 9 % (0-9) Eosinophils (%) (Auto) 5 % (0-3) H Basophils (%) (Auto) 1 % (0-3) Neutrophils # (Auto) 2.7 x10^3uL (1.8-7.7) Lymphocytes # (Auto) 0.8 x10^3/uL (1.0-4.8) L Monocytes # (Auto) 0.4 x10^3/uL (0.0-1.1) Eosinophils # (Auto) 0.2 x10^3/uL (0.0-0.7) Basophils # (Auto) 0.0 x10^3/uL (0.0-0.2) Sodium Level 141 mmol/L (136-145) Potassium Level 3.8 mmol/L (3.5-5.1) Chloride Level 102 mmol/L (98-107) Carbon Dioxide Level 30 mmol/L (21-32) Anion Gap 9 (6-14) Blood Urea Nitrogen 20 mg/dL (8-26) Creatinine 1.1 mg/dL (0.7-1.3) Estimated GFR (Cockcroft-Gault) 64.4 BUN/Creatinine Ratio 18 (6-20) Glucose Level 97 mg/dL (70-99) Calcium Level 9.3 mg/dL (8.5-10.1) Total Bilirubin 0.2 mg/dL (0.2-1.0) Aspartate Amino Transferase (AST) 12 U/L (15-37) L Alanine Aminotransferase (ALT) 14 U/L (16-63) L Alkaline Phosphatase 89 U/L (46-116) Total Protein 6.8 g/dL (6.4-8.2) Albumin 3.1 g/dL (3.4-5.0) L Albumin/Globulin Ratio 0.8 (1.0-1.7) L Current Medications: I have reviewed the current psychotropics carefully including drug interactions. Risk benefit ratio favors no change other than as noted in my dictated progress note. Diagnosis: Problems: (1) Dementia, vascular, with depression (2) Dementia, vascular, with delusions (3) Anxiety disorder (4) Major depressive disorder, recurrent episode (5) Major neurocognitive disorder, due to vascular disease, with behavioral disturbance, mild (6) Mild cognitive disorder (7) Impulse control disorder OTIS SHEPHERD MD Jun 25, 2019 21:14
--- NOTE | 2019-06-26 | PN ---
DATE: 06/24/2019 PSYCHIATRIC PROGRESS NOTE This late entry 06/24/2019 covers elements not covered in my initial note. SUBJECTIVE: I met with the patient evening of 06/24/2019. Per JACK Mcclure, the patient slept 3-3/4 hours previous night. I met with him in his room. He is obsessed about having osteoporosis, had many questions about this. We will defer to Dr. Awad. Nevertheless, he is better on 06/24/2019. Slept 3-3/4 hours previous night. REVIEW OF SYSTEMS: Has vague somatic symptoms. No CV, , pulmonary, eye system symptoms on review. MENTAL STATUS EXAM: Reasonably oriented to himself and situation. Speech coherent, rapid at times. Abstraction fair, computation impaired, language function intact. Mood and affect, overall lability is improved. LABORATORY DATA: Reviewed. IMPRESSION: Unchanged from initial note. PLAN: No change from initial note. MAN [place] SHEPHERD MD DR: DEMETRIO/pramod JOB#: [id number] / [id number]
== END 2019-06-25 11:30 | DRG 885 ==
LOC: GEROPSY 05-24 01:42
PROVIDERS: ADMIT Psychiatry & Neurology Psychiatry; ATTEND Psychiatry & Neurology Psychiatry
DX: F33.3 Major depressive disorder, recurrent, severe with psychotic symptoms (principal); F01.51 Vascular dementia, unspecified severity, with behavioral disturbance; F02.81 Dementia in other diseases classified elsewhere, unspecified severity, with behavioral disturbance; N39.0 Urinary tract infection, site not specified; C61 Malignant neoplasm of prostate; F41.9 Anxiety disorder, unspecified; F63.9 Impulse disorder, unspecified; G30.9 Alzheimer's disease, unspecified; G89.29 Other chronic pain; I10 Essential (primary) hypertension; I25.2 Old myocardial infarction; I48.91 Unspecified atrial fibrillation; K21.9 Gastro-esophageal reflux disease without esophagitis; K59.00 Constipation, unspecified; M81.0 Age-related osteoporosis without current pathological fracture; N40.0 Benign prostatic hyperplasia without lower urinary tract symptoms; Z66 Do not resuscitate; Z79.899 Other long term (current) drug therapy; Z85.46 Personal history of malignant neoplasm of prostate; Z87.891 Personal history of nicotine dependence
CPT/HCPCS: 36415; 72128; 73030; 78306; 80053; 80061; 81001; 82306; 82607; 83036; 83540; 83550; 83735; 84436; 84443; 84480; 85025; 86592; 93005; A9503; G0103; J0696